=== PATIENT | male | born 1960 | race Caucasian/White ===

== ENCOUNTER 2018-09-21 16:50 | Emergency (ER) | payer MEDICARE, OTHER ==
[~2018-09-21] VITALS: Ht 170.2 cm; Wt 79.4 kg
[~2018-09-21 16:50] MED LIST: ACET500T68 PO; ALBU2.5V14 NEB; AMLO10TA8 PO; APIX5TAB PO; ASPI-482 PO; ATROVENT HFA12.9 GM IH; BACL10TA PO; BACL20TA PO; BREO ELLIPTA 11 EACH IH; BUDE0.5A3 NEB; CETI10TA16 PO; CHOL500016 PO; CLON1TAB11 PO; CLON2TAB9 PO; DEXT15DR5 EACHEYE; DICL100G18 TP; DIVA-53 PO; DIVA500T17 PO; DOCU-109 PO; DOXY100T PO; FURO-69 PO; GABA300C18 PO; GUAI237L83 PO; GUAI600T47 PO; HYDR-2761 PO; HYDR-2869 PO; IPRA3AMP29 NEB; LACT1CAP48 PO; LIDO700A39 TP; LORA10TA3 PO; MONT10TA9 PO; NICO1PAT21 TP; NICO2GUM42 BC; ONDA4TAB10 SL; PANT20TA2 PO; PHEN30SP8 MM; POTA20TA82 PO; PRED1TAB3 PO; PRED20TA PO; TRIH5TAB2 PO; VENL75CA6 PO
[2018-09-21 17:15] LABS: BASO # 0.1 x10^3/uL (0.0-0.2); BASO % 1 % (0-3); EOS # 0.2 x10^3/uL (0.0-0.7); EOS % 3 % (0-3); HEMOGLOBIN 12.7 g/dL (13.0-17.5); LYMPH # 1.4 x10^3/uL (1.0-4.8); LYMPH % 15 % (24-48); MEAN CORPUSCULAR HEMOGLOBIN 30 pg (25-35); MEAN CORPUSCULAR HGB CONC 33 g/dL (31-37); MEAN CORPUSCULAR VOLUME 93 fL (79-100); MONO % 12 % (0-9); NEUT # 6.2 x10^3uL (1.8-7.7); NEUT % 69 % (31-73); PLATELET COUNT 262 x10^3/uL (140-400); RED BLOOD COUNT 4.21 x10^6/uL (4.30-5.70); RED CELL DISTRIBUTION WIDTH 14.5 % (11.5-14.5); WHITE BLOOD COUNT 8.9 x10^3/uL (4.0-11.0)
[2018-09-21] MEDS ORDERED: IV NORMAL SALINE 1000ML BAG 1,000 ML IV ONE (17:15)
[2018-09-21 17:28] LABS: CALCIUM 9.6 mg/dL (8.5-10.1); CREATININE 0.7 mg/dL (0.7-1.3); GFR 115.4; POTASSIUM 4.6 mmol/L (3.5-5.1)
[2018-09-21 17:33] LABS: ALBUMIN 3.7 g/dL (3.4-5.0); ALBUMIN/GLOBULIN RATIO 1.1 (1.0-1.7); TOTAL BILIRUBIN 0.3 mg/dL (0.2-1.0); TOTAL PROTEIN 7.2 g/dL (6.4-8.2)
[2018-09-21 17:36] LABS: BILIRUBIN,URINE NEGATIVE (NEG); CLARITY,URINE CLEAR; COLOR,URINE YELLOW; NITRITE,URINE NEGATIVE (NEG); PROTEIN,URINE NEGATIVE (NEG-TRACE); UROBILINOGEN,URINE 0.2 mg/dL (0.2 mg/dL)
[2018-09-21 17:48] LABS: WBC,URINE OCC /HPF (0-4)
[2018-09-21 17:49] LABS: BACTERIA,URINE 0 /HPF (0-FEW); SQUAMOUS EPITHELIAL CELL,UR OCC /LPF
[2018-09-21] MEDS ORDERED: CONTRAST GIVEN. MC PRN (18:00)
[2018-09-21] MEDS ORDERED: IOHEXOL 240 MG/ML 50ML VIAL. PO ONE (18:00)
[2018-09-21] MEDS ORDERED: IOHEXOL 300 MG/ML 100ML VIAL. IV ONE (18:00)
--- NOTE | 2018-09-21 18:27 | RAD ---
PQRS Compliance Statement: One or more of the following individualized dose reduction techniques were utilized for this examination: 1. Automated exposure control 2. Adjustment of the mA and/or kV according to patient size 3. Use of iterative reconstruction technique CT abdomen/pelvis with contrast 09/21/2018 6:03 PM INDICATION: Right lower quadrant and right flank pain for 2 months. COMPARISON: None available TECHNIQUE: Multiple axial CT images of the abdomen and pelvis were obtained after the intravenous administration of 75 mL Omnipaque 300. Coronal and sagittal reformats are provided. FINDINGS: Bandlike density at the right lung base may represent subsegmental atelectasis or scarring. Bronchial wall thickening is compatible with bronchitis. Heart size is within normal limits. The liver, spleen, bilateral adrenal glands, pancreas and gallbladder are normal in appearance. 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 Moderate calcified atheromatous plaque is identified involving the abdominal aorta. There are no pathologically enlarged lymph nodes in abdomen and pelvis. There is no free fluid or free intraperitoneal air. There is a 16 mm simple cyst in the superior pole of the left kidney. There is a 3 mm nonobstructing calculus in inferior pole the left kidney. Subcentimeter hypodensities are identified bilaterally which statistically favor cysts. There is a 2 mm nonobstructing calculus in the midpole the right kidney. There is no hydronephrosis. There is symmetric renal enhancement. Oral contrast was administered. Opacified bowel loops demonstrate normal mucosal fold pattern. Small and large bowel are normal in caliber. There is no evidence for bowel obstruction. There are no pericolonic inflammatory changes. A normal, nondilated appendix is visualized without adjacent inflammatory changes. Prostate and seminal vesicles are normal in appearance. Urinary bladder is within normal limits given degree of distention. There is mild superior endplate compression deformity of L4 which appears chronic. Vacuum disc phenomena is identified at L3-L4. IMPRESSION: 1. No acute abnormality is identified in abdomen or pelvis. Specifically, appendix is normal in appearance. No evidence for obstructive uropathy. 2. Nonobstructing bilateral renal calculi are visualized measuring up to 3 mm. No hydronephrosis. 4. Minimal superior endplate concavity of the L4 vertebral body appears chronic. Electronically signed by: Maritza Hernandez MD (09/21/2018 6:24 PM) [facility]
[2018-09-21 18:30] VITALS: BP 192/89
--- NOTE | 2018-09-21 18:46 | PHYS DOC ---
Past Medical History Past Medical History: Anxiety, Bipolar, CHF, COPD, DVT, Hypertension, Other Additional Past Medical Histor: sleep apnea; mood disorder; chronic pain (NANY VERNON APRN) Past Surgical History: No Surgical History (NANY VERNON APRN) Alcohol Use: None Drug Use: None (NANY VERNON APRN) Adult General Chief Complaint Chief Complaint: ABDOMINAL PAIN HPI HPI Patient is a 57 year old male who presents with complaints of lower abdominal pain. The patient is pointing to his right lower quadrant. The patient states that he does still have his appendix. The patient was also talking about his story about when he was younger and complaining of sciatic pain following an injury. I clarified and the patient states that this happened years ago. He states that it does not have anything to do with his current complaint. Patient states nothing is helping with the pain. (NANY VERNON APRN) Review of Systems Review of Systems Constitutional: Denies fever or chills [] Eyes: Denies change in visual acuity, redness, or eye pain [] HENT: Denies nasal congestion or sore throat [] Respiratory: Denies cough or shortness of breath [] Cardiovascular: No additional information not addressed in HPI [] GI: See history of present illness : Denies dysuria or hematuria [] Musculoskeletal: Denies back pain or joint pain [] Integument: Denies rash or skin lesions [] Neurologic: Denies headache, focal weakness or sensory changes [] Endocrine: Denies polyuria or polydipsia [] All other systems were reviewed and found to be within normal limits, except as documented in this note. (NANY VERNON APRN) Current Medications Current Medications Current Medications Medications (Trade) Dose Ordered Sig/Ruth Start Time Stop Time Status Last Admin Dose Admin Acetaminophen/ Hydrocodone Bitart (Lortab 5/325) 1 tab STK-MED ONCE 09/21/18 19:10 09/21/18 19:11 DC Info (CONTRAST GIVEN -- Rx MONITORING) 1 each PRN DAILY PRN 09/21/18 18:00 09/21/18 19:05 DC Iohexol (Omnipaque 240 Mg/ml) 50 ml 1X ONCE 09/21/18 18:00 09/21/18 18:01 DC 09/21/18 18:07 50 ML Iohexol (Omnipaque 300 Mg/ml) 75 ml 1X ONCE 09/21/18 18:00 09/21/18 18:01 DC 09/21/18 18:07 75 ML Sodium Chloride 1,000 ml @ 1,000 mls/hr 1X ONCE 09/21/18 17:15 09/21/18 18:14 DC 09/21/18 17:18 1,000 MLS/HR (VIOLETTA MORSE MD) Allergies Allergies Allergies Coded Allergies Type Severity Reaction Last Updated Verified I S O L A T I O N *CONTACT* Allergy Unknown 01/28/18 Yes No Known Medication Allergies Allergy Unknown 01/28/18 Yes (VIOLETTA MORSE MD) Physical Exam Physical Exam Constitutional: Well developed, well nourished, no acute distress, non-toxic appearance. [] Cardiovascular:Heart rate regular rhythm, no murmur [] Lungs & Thorax: Bilateral breath sounds clear to auscultation [] Abdomen: Bowel sounds normal, soft, right lower quadrant tenderness, no masses, no pulsatile masses. [] Skin: Warm, dry, no erythema, no rash. [] Back: No tenderness, no CVA tenderness. [] Extremities: No tenderness, no cyanosis, no clubbing, ROM intact, no edema. [] Neurologic: Alert and oriented X 3, normal motor function, normal sensory function, no focal deficits noted. [] Psychologic: Affect normal, judgement normal, mood normal. [] (NANY VERNON APRN) Current Patient Data Vital Signs Vital Signs Date Time Temp Pulse Resp B/P (MAP) Pulse Ox O2 Delivery O2 Flow Rate FiO2 09/21/18 18:30 84 17 192/89 (123) 99 Nasal Cannula 2.0 09/21/18 17:13 97.9 97.9 (VIOLETTA MORSE MD) Lab Values Laboratory Tests Test 09/21/18 17:00 09/21/18 17:23 White Blood Count 8.9 x10^3/uL (4.0-11.0) Red Blood Count 4.21 x10^6/uL (4.30-5.70) L Hemoglobin 12.7 g/dL (13.0-17.5) L Hematocrit 39.0 % (39.0-53.0) Mean Corpuscular Volume 93 fL (79-100) Mean Corpuscular Hemoglobin 30 pg (25-35) Mean Corpuscular Hemoglobin Concent 33 g/dL (31-37) Red Cell Distribution Width 14.5 % (11.5-14.5) Platelet Count 262 x10^3/uL (140-400) Neutrophils (%) (Auto) 69 % (31-73) Lymphocytes (%) (Auto) 15 % (24-48) L Monocytes (%) (Auto) 12 % (0-9) H Eosinophils (%) (Auto) 3 % (0-3) Basophils (%) (Auto) 1 % (0-3) Neutrophils # (Auto) 6.2 x10^3uL (1.8-7.7) Lymphocytes # (Auto) 1.4 x10^3/uL (1.0-4.8) Monocytes # (Auto) 1.0 x10^3/uL (0.0-1.1) Eosinophils # (Auto) 0.2 x10^3/uL (0.0-0.7) Basophils # (Auto) 0.1 x10^3/uL (0.0-0.2) Sodium Level 141 mmol/L (136-145) Potassium Level 4.6 mmol/L (3.5-5.1) Chloride Level 101 mmol/L (98-107) Carbon Dioxide Level 35 mmol/L (21-32) H Anion Gap 5 (6-14) L Blood Urea Nitrogen 14 mg/dL (8-26) Creatinine 0.7 mg/dL (0.7-1.3) Estimated GFR (Cockcroft-Gault) 115.4 BUN/Creatinine Ratio 20 (6-20) Glucose Level 104 mg/dL (70-99) H Calcium Level 9.6 mg/dL (8.5-10.1) Total Bilirubin 0.3 mg/dL (0.2-1.0) Aspartate Amino Transferase (AST) 24 U/L (15-37) Alanine Aminotransferase (ALT) 17 U/L (16-63) Alkaline Phosphatase 102 U/L (46-116) Total Protein 7.2 g/dL (6.4-8.2) Albumin 3.7 g/dL (3.4-5.0) Albumin/Globulin Ratio 1.1 (1.0-1.7) Urine Color Yellow Urine Clarity Clear Urine pH 6.0 Urine Specific [place] <=1.005 Urine Protein Negative mg/dL (NEG-TRACE) Urine Glucose (UA) Negative mg/dL (NEG) Urine Ketones (Stick) Negative mg/dL (NEG) Urine Blood Negative (NEG) Urine Nitrite Negative (NEG) Urine Bilirubin Negative (NEG) Urine Urobilinogen Dipstick 0.2 mg/dL (0.2 mg/dL) Urine Leukocyte Esterase Negative (NEG) Urine RBC 1-2 /HPF (0-2) Urine WBC Occ /HPF (0-4) Urine Squamous Epithelial Cells Occ /LPF Urine Bacteria 0 /HPF (0-FEW) Laboratory Tests 09/21/18 17:00 Laboratory Tests 09/21/18 17:00 (VIOLETTA MORSE MD) EKG EKG [] (NANY VERNON APRN) Radiology/Procedures Radiology/Procedures []PATIENT: JUVENTINO CA AACCOUNT: [id number]#: [id number] : 1960 LOCATION: ER AGE: 57 SEX: M EXAM STATUS: REG ER ORD. PHYSICIAN: NANY VERNON APRN REASON: rlq pain, r flank pain PROCEDURE: CT ABD PELV W/ORAL&IV CONTRAST PQRS Compliance Statement: One or more of the following individualized dose reduction techniques were utilized for this examination: 1. Automated exposure control 2. Adjustment of the mA and/or kV according to patient size 3. Use of iterative reconstruction technique CT abdomen/pelvis with contrast 09/21/2018 6:03 PM INDICATION: Right lower quadrant and right flank pain for 2 months. COMPARISON: None available TECHNIQUE: Multiple axial CT images of the abdomen and pelvis were obtained after the intravenous administration of 75 mL Omnipaque 300. Coronal and sagittal reformats are provided. FINDINGS: Bandlike density at the right lung base may represent subsegmental atelectasis or scarring. Bronchial wall thickening is compatible with bronchitis. Heart size is within normal limits. The liver, spleen, bilateral adrenal glands, pancreas and gallbladder are normal in appearance. 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 Moderate calcified atheromatous plaque is identified involving the abdominal aorta. There are no pathologically enlarged lymph nodes in abdomen and pelvis. There is no free fluid or free intraperitoneal air. There is a 16 mm simple cyst in the superior pole of the left kidney. There is a 3 mm nonobstructing calculus in inferior pole the left kidney. Subcentimeter hypodensities are identified bilaterally which statistically favor cysts. There is a 2 mm nonobstructing calculus in the midpole the right kidney. There is no hydronephrosis. There is symmetric renal enhancement. Oral contrast was administered. Opacified bowel loops demonstrate normal mucosal fold pattern. Small and large bowel are normal in caliber. There is no evidence for bowel obstruction. There are no pericolonic inflammatory changes. A normal, nondilated appendix is visualized without adjacent inflammatory changes. Prostate and seminal vesicles are normal in appearance. Urinary bladder is within normal limits given degree of distention. There is mild superior endplate compression deformity of L4 which appears chronic. Vacuum disc phenomena is identified at L3-L4. IMPRESSION: 1. No acute abnormality is identified in abdomen or pelvis. Specifically, appendix is normal in appearance. No evidence for obstructive uropathy. 2. Nonobstructing bilateral renal calculi are visualized measuring up to 3 mm. No hydronephrosis. 4. Minimal superior endplate concavity of the L4 vertebral body appears chronic. Electronically signed by: Violet García MD (09/21/2018 6:24 PM) [facility] DICTATED and SIGNED BY: VIOLET GARCÍA MD DATE: 09/21/181814 (NANY VERNON APRN) Course & Med Decision Making Course & Med Decision Making Pertinent Labs and Imaging studies reviewed. (See chart for details) Labs and imaging were negative for an acute abdominal cause for the patient's pain. The patient was given a dose of Ola for pain in the emergency department. The patient was extremely angry with the nurse and was upset that he was not getting IV narcotic pain medication. We explained that his test results were negative. He continued to be very vocal about the need for IV pain medication. The patient was transported back to his place of residence by EMS. (NANY VERNON APRN) Course & Med Decision Making Staff Physician Addendum: I was working in the ER during the course of this patient's visit. I was available for consultation as needed, but I was not directly involved in the care of this patient. (VIOLETTA MORSE MD) Dragon Disclaimer Dragon Disclaimer This electronic medical record was generated, in whole or in part, using a voice recognition dictation system. (NANY VERNON APRN) Departure Departure Impression: Primary Impression: Abdominal pain Disposition: 01 HOME, SELF-CARE Condition: STABLE Referrals: HEATH MALLOY (PCP) Patient Instructions: Abdominal Pain (Nonspecific) Additional Instructions: There is no acute cause found for your abdominal pain. Follow-up with your primary care provider in 2-3 days if not improving or return to the emergency department if worsening. NANY VERNON APRN Sep 21, 2018 18:45 VIOLETTA MORSE MD Sep 24, 2018 07:05
[2018-09-21] MEDS ORDERED: HYDROcodone/APAP 5/325MG 1 TAB TABLET ONE (19:10)
[2018-09-21] MEDS ORDERED: HYDROcodone/APAP 5/325MG 1 TAB TABLET PO ONE (19:15)
== END 2018-09-21 19:05 | disposition home or self-care (01) ==
LOC: ER 16:50
DX: R10.31 Right lower quadrant pain (principal); N20.0 Calculus of kidney; G89.29 Other chronic pain; F41.9 Anxiety disorder, unspecified; F31.9 Bipolar disorder, unspecified; I11.0 Hypertensive heart disease with heart failure; I50.9 Heart failure, unspecified; J44.9 Chronic obstructive pulmonary disease, unspecified; Z86.718 Personal history of other venous thrombosis and embolism; Z91.041 Radiographic dye allergy status
CPT/HCPCS: 36415; 74177; 80053; 81001; 85025; 99284; J7030; Q9966; Q9967

== ENCOUNTER 2019-07-26 17:14 | Inpatient (IN) | payer MEDICARE, MEDICAID ==
[~2019-07-26] VITALS: Ht 170.2 cm; Wt 91.3 kg
[~2019-07-26 17:14] MED LIST changes: -CLON1TAB11 PO; +CLONAZEPAM1 MG PO; +LIDO700A21 TP; -LIDO700A39 TP; +MONT10TA49 PO; -MONT10TA9 PO; +POTA20TA4 PO; -POTA20TA82 PO
[2019-07-26] MEDS ORDERED: MORPHINE SULFATE 4 MG/ML VIAL. IV/SQ PRN (17:45)
[2019-07-26 17:53] LABS: BASO # 0.1 x10^3/uL (0.0-0.2); BASO % 1 % (0-3); EOS # 0.2 x10^3/uL (0.0-0.7); EOS % 3 % (0-3); HEMATOCRIT 40.1 % (39.0-53.0); HEMOGLOBIN 13.4 g/dL (13.0-17.5); LYMPH # 1.5 x10^3/uL (1.0-4.8); LYMPH % 20 % (24-48); MEAN CORPUSCULAR HEMOGLOBIN 31 pg (25-35); MEAN CORPUSCULAR HGB CONC 33 g/dL (31-37); MEAN CORPUSCULAR VOLUME 92 fL (79-100); MONO # 0.9 x10^3/uL (0.0-1.1); MONO % 12 % (0-9); NEUT # 4.8 x10^3/uL (1.8-7.7); NEUT % 64 % (31-73); PLATELET COUNT 248 x10^3/uL (140-400); RED BLOOD COUNT 4.35 x10^6/uL (4.30-5.70); RED CELL DISTRIBUTION WIDTH 13.6 % (11.5-14.5); WHITE BLOOD COUNT 7.4 x10^3/uL (4.0-11.0)
[2019-07-26 17:56] LABS: PROTHROMBIN TIME PATIENT 12.9 SEC (11.7-14.0)
[2019-07-26 18:05] LABS: CALCIUM 9.9 mg/dL (8.5-10.1); GFR 76.2; POTASSIUM 3.8 mmol/L (3.5-5.1)
[2019-07-26 18:11] LABS: ALBUMIN/GLOBULIN RATIO 1.2 (1.0-1.7); MAGNESIUM 2.2 mg/dL (1.8-2.4); TOTAL BILIRUBIN 0.3 mg/dL (0.2-1.0); TOTAL PROTEIN 7.4 g/dL (6.4-8.2)
--- NOTE | 2019-07-26 18:16 | RAD ---
Examination: PORTABLE CHEST 1V History: Edema Comparison/Correlation: 02/15/2018 portable chest x-ray exam, 08/09/2018 CTA of the chest Findings: Portable upright frontal view chest was obtained. Heart size is normal. Left basilar opacity is evident in the retrocardiac region pulmonary hyperinflation is present. Right lateral mid thoracic opacity is present And somewhat more evident as compared to the previous CT exam. Right costophrenic angle blunting is similar to previous exam. Pulmonary hyperinflation noted. Impression: Opacity the right lateral mid thoracic level is somewhat more dense than previously although this may be due to differences in technique. Consider interval follow-up CT of the chest with contrast assess in order to stability. Electronically signed by: Say Cortez MD (07/26/2019 6:13 PM) [facility]
[2019-07-26 18:52] LABS: BILIRUBIN,URINE NEGATIVE (NEG); CLARITY,URINE CLEAR; COLOR,URINE YELLOW; NITRITE,URINE NEGATIVE (NEG); PH,URINE 6.5; PROTEIN,URINE NEGATIVE (NEG-TRACE); UROBILINOGEN,URINE 0.2 mg/dL (0.2 mg/dL)
[2019-07-26 19:06] LABS: BACTERIA,URINE 0 /HPF (0-FEW); RBC,URINE 0 /HPF (0-2); WBC,URINE 0 /HPF (0-4)
[2019-07-26] MEDS ORDERED: IOHEXOL 300 MG/ML 100ML VIAL. IV ONE (19:15)
[2019-07-26] MEDS ORDERED: CONTRAST GIVEN. MC PRN (19:30)
--- NOTE | 2019-07-26 20:00 | PHYS DOC ---
Past Medical History Past Medical History: Anxiety, Bipolar, CHF, COPD, DVT, Hypertension, Other Additional Past Medical Histor: sleep apnea; mood disorder; chronic pain, cervical dystonia (VAHID BENNETT APRN) Past Surgical History: No Surgical History (VAHID BENNETT APRN) Alcohol Use: None Drug Use: None (VAHID BENNETT APRN) Attending Signature I have participated in the care of this patient and I have reviewed and agree with all pertinent clinical information above including history, exam, and recommendations. (CHAR CHAVARRIA MD) Adult General Chief Complaint Chief Complaint: LOWER EXTREMITY EDEMA HPI HPI Patient is a 58 year old male with history of COPD and oxygen 2 L, hypertension, CHF, bipolar, cervical dystonia, DVT, unknown what blood thinner he takes, who presents to the ED today complaining of increased swelling to the abdomen and lower extremity that has been going on for 1 month. Patient states he came from a residential and had gone home to visit the mother and the sister who felt he was more swollen than normal. Patient denies any new shortness of breath. Patient states his medicines at the residential have been switched around so many times that he currently cannot remember what he is on. Patient is a very poor historian preferring most questions back to the residential (VAHID BENNETT APRN) Review of Systems Review of Systems Constitutional: Denies fever or chills [] Eyes: Denies change in visual acuity, redness, or eye pain [] HENT: Denies nasal congestion or sore throat [] Respiratory: Denies cough or shortness of breath [] Cardiovascular: No additional information not addressed in HPI [] GI: Denies abdominal pain, nausea, vomiting, bloody stools or diarrhea [] : Denies dysuria or hematuria [] Musculoskeletal:Reports BLE swelling. Denies back pain or joint pain [] Integument: Denies rash or skin lesions [] Neurologic: Denies headache, focal weakness or sensory changes [] All other systems were reviewed and found to be within normal limits, except as documented in this note. (VAHID BENNETT APRN) Current Medications Current Medications Current Medications Medications (Trade) Dose Ordered Sig/Ruth Start Time Stop Time Status Last Admin Dose Admin Iohexol (Omnipaque 300 Mg/ml) 75 ml 1X ONCE 07/26/19 19:15 07/26/19 19:17 DC 12/24/19 19:15 75 ML Morphine Sulfate (Morphine Sulfate) 4 mg PRN Q15MIN PRN 07/26/19 17:45 07/27/19 17:44 07/26/19 20:08 4 MG (CHAR CHAVARRIA MD) Allergies Allergies Allergies Coded Allergies Type Severity Reaction Last Updated Verified I S O L A T I O N *CONTACT* Allergy Unknown 01/28/18 Yes No Known Medication Allergies Allergy Unknown 01/28/18 Yes (CHAR CHAVARRIA MD) Physical Exam Physical Exam Constitutional: Well developed, well nourished, no acute distress, non-toxic appearance. [] HENT: Normocephalic, atraumatic, bilateral external ears normal, oropharynx moist, no oral exudates, nose normal. [] Eyes: PERRLA, EOMI, conjunctiva normal, no discharge. [] Neck: Normal range of motion, no tenderness, supple, no stridor. [] Cardiovascular:Heart rate regular rhythm, no murmur [] Lungs & Thorax: Bilateral breath sounds clear to auscultation [] Abdomen: Rounded abdomen. Bowel sounds normal, soft, no tenderness, no masses, no pulsatile masses. [] Skin: Warm, dry, no erythema, no rash. [] Back: No tenderness, no CVA tenderness. [] Extremities: No tenderness, no cyanosis, no clubbing, ROM intact, +3 edema noted to bilateral lower extremities. Negative Homans sign bilaterally. Neurologic: Alert and oriented X 3, normal motor function, normal sensory function, no focal deficits noted. [] Psychologic: Affect normal, judgement normal, mood normal. [] (VAHID BENNETT APRN) Current Patient Data Vital Signs Vital Signs Date Time Temp Pulse Resp B/P (MAP) Pulse Ox O2 Delivery O2 Flow Rate FiO2 07/26/19 18:56 86 167/93 (117) 96 Nasal Cannula 2.0 07/26/19 17:20 98.5 22 98.5 (CHAR CHAVARRIA MD) Lab Values Laboratory Tests Test 07/26/19 17:35 07/26/19 18:45 White Blood Count 7.4 x10^3/uL (4.0-11.0) Red Blood Count 4.35 x10^6/uL (4.30-5.70) Hemoglobin 13.4 g/dL (13.0-17.5) Hematocrit 40.1 % (39.0-53.0) Mean Corpuscular Volume 92 fL (79-100) Mean Corpuscular Hemoglobin 31 pg (25-35) Mean Corpuscular Hemoglobin Concent 33 g/dL (31-37) Red Cell Distribution Width 13.6 % (11.5-14.5) Platelet Count 248 x10^3/uL (140-400) Neutrophils (%) (Auto) 64 % (31-73) Lymphocytes (%) (Auto) 20 % (24-48) L Monocytes (%) (Auto) 12 % (0-9) H Eosinophils (%) (Auto) 3 % (0-3) Basophils (%) (Auto) 1 % (0-3) Neutrophils # (Auto) 4.8 x10^3/uL (1.8-7.7) Lymphocytes # (Auto) 1.5 x10^3/uL (1.0-4.8) Monocytes # (Auto) 0.9 x10^3/uL (0.0-1.1) Eosinophils # (Auto) 0.2 x10^3/uL (0.0-0.7) Basophils # (Auto) 0.1 x10^3/uL (0.0-0.2) Prothrombin Time 12.9 SEC (11.7-14.0) Prothrombin Time INR 1.0 (0.8-1.1) Sodium Level 144 mmol/L (136-145) Potassium Level 3.8 mmol/L (3.5-5.1) Chloride Level 102 mmol/L (98-107) Carbon Dioxide Level 37 mmol/L (21-32) H Anion Gap 5 (6-14) L Blood Urea Nitrogen 20 mg/dL (8-26) Creatinine 1.0 mg/dL (0.7-1.3) Estimated GFR (Cockcroft-Gault) 76.2 BUN/Creatinine Ratio 20 (6-20) Glucose Level 140 mg/dL (70-99) H Calcium Level 9.9 mg/dL (8.5-10.1) Magnesium Level 2.2 mg/dL (1.8-2.4) Total Bilirubin 0.3 mg/dL (0.2-1.0) Aspartate Amino Transferase (AST) 19 U/L (15-37) Alanine Aminotransferase (ALT) 23 U/L (16-63) Alkaline Phosphatase 98 U/L (46-116) Creatine Kinase 217 U/L (39-308) Creatine Kinase MB (Mass) 2.5 ng/mL (0.0-3.6) Creatine Kinase MB Relative Index 1.2 % (0-4) Troponin I Quantitative < 0.017 ng/mL (0.000-0.055) UY-Bnh-C-Type Natriuretic Peptide 107 pg/mL (0-124) Total Protein 7.4 g/dL (6.4-8.2) Albumin 4.0 g/dL (3.4-5.0) Albumin/Globulin Ratio 1.2 (1.0-1.7) Urine Collection Type Unknown Urine Color Yellow Urine Clarity Clear Urine pH 6.5 Urine Specific [place] 1.020 Urine Protein Negative mg/dL (NEG-TRACE) Urine Glucose (UA) Negative mg/dL (NEG) Urine Ketones (Stick) Negative mg/dL (NEG) Urine Blood Negative (NEG) Urine Nitrite Negative (NEG) Urine Bilirubin Negative (NEG) Urine Urobilinogen Dipstick 0.2 mg/dL (0.2 mg/dL) Urine Leukocyte Esterase Negative (NEG) Urine RBC 0 /HPF (0-2) Urine WBC 0 /HPF (0-4) Urine Squamous Epithelial Cells None /LPF Urine Bacteria 0 /HPF (0-FEW) Urine Mucus Slight /LPF Laboratory Tests 07/26/19 17:35 Laboratory Tests 07/26/19 17:35 (CHAR CHAVARRIA MD) EKG EKG [address] Rosa sinus rhythm Hr 87 no STEMI[] (VAHID BENNETT APRN) Radiology/Procedures Radiology/Procedures PROCEDURE: PORTABLE CHEST 1V Examination: PORTABLE CHEST 1V History: Edema Comparison/Correlation: 02/15/2018 portable chest x-ray exam, 08/09/2018 CTA of the chest Findings: Portable upright frontal view chest was obtained. Heart size is normal. Left basilar opacity is evident in the retrocardiac region pulmonary hyperinflation is present. Right lateral mid thoracic opacity is present And somewhat more evident as compared to the previous CT exam. Right costophrenic angle blunting is similar to previous exam. Pulmonary hyperinflation noted. Impression: Opacity the right lateral mid thoracic level is somewhat more dense than previously although this may be due to differences in technique. Consider interval follow-up CT of the chest with contrast assess in order to stability. Electronically signed by: Say Ontiveros MD (07/26/2019 6:13 PM) [facility] DICTATED and SIGNED BY: SAY ONTIVEROS MD DATE: 07/26/191812 []PROCEDURE: VENOUS LOWER EXT BILATERAL Examination: VENOUS LOWER EXT BILATERAL History: Bilateral lower extremity swelling Comparison/Correlation: None FINDINGS: Bilateral lower extremity duplex venous ultrasound exam was performed. Grayscale, color Doppler, and spectral Doppler imaging was performed. Compression and augmentation was performed. The right common femoral vein, superficial femoral vein, popliteal vein, and greater saphenous vein are normal with no evidence of deep venous thrombus. Normal compressibility and augmentation is evident. The left common femoral vein, superficial femoral vein, popliteal vein, and greater saphenous vein are normal with no evidence of deep venous thrombus. Normal compressibility and augmentation is evident. Visualized calf veins bilaterally are unremarkable. IMPRESSION: Normal bilateral lower extremity duplex ultrasound exam. No evidence of deep venous thrombus involving the lower extremities. Electronically signed by: Say Ontiveros MD (07/26/2019 8:35 PM) [facility] DICTATED and SIGNED BY: SAY ONTIVEROS MD DATE: 07/26/192034 PROCEDURE: CT CHEST W/CONTRAST Examination: CT CHEST W/CONTRAST History: Abnormal chest x-ray. Lung opacities. Comparison/Correlation: 07/26/2019 portable chest x-ray exam performed earlier, 08/09/2018 CTA of the chest Findings: Axial images of chest were obtained following IV contrast. Sagittal and coronal reformatted images were provided. Thyroid gland is unremarkable. Coronary arterial calcification noted. No enlarged thoracic lymph nodes. No pleural or pericardial effusion. Bronchial wall thickening involving the lower lobes again seen. Mild bilateral lower lobe bronchial wall thickening is evident. Right posterior basilar pleural thickening and lung field scarring is again identified. No new mass in the interval. Marked centrilobular emphysematous involvement along aguilar noted. Large bulla involves the right apex. Bullae the anterior lung bases noted. Left renal superior pole low-attenuation cyst is stable. Stomach is distended with debris. Bony structures are unremarkable. Impression: Right posterior pleural thickening and basilar scarring are unchanged. No new mass is evident. No suspicious infiltrate or effusion. Significant emphysematous involvement along aguilar again noted. Bronchial wall thickening compatible with bronchitis. PQRS Compliance Statement: One or more of the following individualized dose reduction techniques were utilized for this examination: 1. Automated exposure control 2. Adjustment of the mA and/or kV according to patient size 3. Use of iterative reconstruction technique Electronically signed by: Say Ontiveros MD (07/26/2019 8:28 PM) [facility] DICTATED and SIGNED BY: SAY ONTIVEROS MD DATE: 07/26/192027 (VAHID BENNETT APRN) Course & Med Decision Making Course & Med Decision Making Pertinent Labs and Imaging studies reviewed. (See chart for details) This is a 58-year-old male patient presenting to the ED today complaining of increased swelling to the abdomen and bilateral lower extremities that has been going on for 1 month. See history of present illness. Has history of CHF, DVT. Patient does not know what medications is on. BNP 107, venous Dopplers of the bilateral lower extremities are negative. CT of the chest is negative for any acute findings, noted for bronchitis. Spoke with Dr. Watkins who accepted patient for admission. (VAHID BENNETT APRN) Dragon Disclaimer Dragon Disclaimer This electronic medical record was generated, in whole or in part, using a voice recognition dictation system. (VAHID BENNETT APRN) Departure Departure Impression: Primary Impression: Swelling of both lower extremities Additional Impression: Acute bronchitis Disposition: ADMITTED INPATIENT Condition: STABLE Referrals: HEATH MALLOY (PCP) Problem Qualifiers Additional Impression: Acute bronchitis Bronchitis organism: unspecified organism Qualified Codes: J20.9 - Acute bronchitis, unspecified VAHID BENNETT APRN Jul 26, 2019 20:00 CHAR CHAVARRIA MD Jul 26, 2019 21:33
--- NOTE | 2019-07-26 20:31 | RAD ---
Examination: CT CHEST W/CONTRAST History: Abnormal chest x-ray. Lung opacities. Comparison/Correlation: 07/26/2019 portable chest x-ray exam performed earlier, 08/09/2018 CTA of the chest Findings: Axial images of chest were obtained following IV contrast. Sagittal and coronal reformatted images were provided. Thyroid gland is unremarkable. Coronary arterial calcification noted. No enlarged thoracic lymph nodes. No pleural or pericardial effusion. Bronchial wall thickening involving the lower lobes again seen. Mild bilateral lower lobe bronchial wall thickening is evident. Right posterior basilar pleural thickening and lung field scarring is again identified. No new mass in the interval. Marked centrilobular emphysematous involvement along aguilar noted. Large bulla involves the right apex. Bullae the anterior lung bases noted. Left renal superior pole low-attenuation cyst is stable. Stomach is distended with debris. Bony structures are unremarkable. Impression: Right posterior pleural thickening and basilar scarring are unchanged. No new mass is evident. No suspicious infiltrate or effusion. Significant emphysematous involvement along aguilar again noted. Bronchial wall thickening compatible with bronchitis. PQRS Compliance Statement: One or more of the following individualized dose reduction techniques were utilized for this examination: 1. Automated exposure control 2. Adjustment of the mA and/or kV according to patient size 3. Use of iterative reconstruction technique Electronically signed by: Say Cortez MD (07/26/2019 8:28 PM) [facility]
--- NOTE | 2019-07-26 20:38 | RAD ---
Examination: VENOUS LOWER EXT BILATERAL History: Bilateral lower extremity swelling Comparison/Correlation: None FINDINGS: Bilateral lower extremity duplex venous ultrasound exam was performed. Grayscale, color Doppler, and spectral Doppler imaging was performed. Compression and augmentation was performed. The right common femoral vein, superficial femoral vein, popliteal vein, and greater saphenous vein are normal with no evidence of deep venous thrombus. Normal compressibility and augmentation is evident. The left common femoral vein, superficial femoral vein, popliteal vein, and greater saphenous vein are normal with no evidence of deep venous thrombus. Normal compressibility and augmentation is evident. Visualized calf veins bilaterally are unremarkable. IMPRESSION: Normal bilateral lower extremity duplex ultrasound exam. No evidence of deep venous thrombus involving the lower extremities. Electronically signed by: Say Cortez MD (07/26/2019 8:35 PM) [facility]
[2019-07-26 20:45] VITALS: BP 154/83
[2019-07-26 23:00] VITALS: BP 149/80
[2019-07-27] VITALS (7 sets, daily range): BP systolic 137–152; BP diastolic 72–81
[2019-07-27] MEDS: MORPHINE IR 15 MG TABLET PO PRN ×3 (06:48→18:00)
--- NOTE | 2019-07-27 07:29 | PDOC1 ---
History and Physical Date of Admission Date of Admission DATE: 07/27/19 TIME: 07:29 Identification/Chief Complaint Chief Complaint SEEN IN ER WITH INC EDEMA , 58 year old male with history of COPD and oxygen 2 L, hypertension, CHF, bipolar, cervical dystonia, DVT, unknown what blood thinner he takes, who presents to the ED complaining of increased swelling to the abdomen and lower extremity that has been going on for 1 month. Patient states he came from [facility] and had gone home to visit the mother and the sister who felt he was more swollen than normal. Patient denies any new shortness of breath i do not hear mush wheezing this AM, AND LEG EDEMA HAS IMPROVED WITH ELEVATION TO TRACE Past Medical History Past Medical History Past Medical History Past Medical History Past Medical History: Anxiety, Bipolar, CHF, COPD, DVT, Hypertension, Other Additional Past Medical Histor: sleep apnea; mood disorder; chronic pain, cervical dystonia Past Surgical History: No Surgical History Alcohol Use: None Drug Use: None fhx copd Cardiovascular: HTN Pulmonary: Bronchitis, COPD Past Surgical History Past Surgical History: No pertinent history Family History Family History: High Cholestrol, Hypertension Social History Smoke: Quit (QUIT 2 YRS AGO) ALCOHOL: occassional Drugs: None Current Problem List Problem List Problems Medical Problems: (1) Acute bronchitis Status: Acute Current Medications Current Medications Current Medications Morphine Sulfate (Morphine Sulfate) 4 mg PRN Q15MIN PRN IV/SQ PAIN GREATER THAN 3/10 Last administered on 07/26/19at 20:08; Start 07/26/19 at 17:45; Stop 07/27/19 at 17:44 Iohexol (Omnipaque 300 Mg/ml) 75 ml 1X ONCE IV Last administered on 07/26/19at 19:15; Start 07/26/19 at 19:15; Stop 07/26/19 at 19:17; Status DC Info (CONTRAST GIVEN -- Rx MONITORING) 1 each PRN DAILY PRN MC SEE COMMENTS; Start 07/26/19 at 19:30; Stop 07/28/19 at 19:29 Morphine Sulfate (Morphine Ir) 15 mg PRN Q4HRS PRN PO PAIN Last administered on 07/27/19at 06:48; Start 07/27/19 at 06:15 Active Scripts Active Prednisone 20 Mg Tablet 40 Mg PO DAILY 3 Days Doxycycline Hyclate 100 Mg Tablet 100 Mg PO BID 3 Days Reported Divalproex Sodium Er (Divalproex Sodium) 500 Mg Tab.er.24h 250 Mg PO DAILY Protonix (Pantoprazole Sodium) 20 Mg Tablet.dr 40 Mg PO DAILY Lidocaine PATCH (Lidocaine) 1 Each Adh..patch 1 Each TP DAILY Zofran Odt (Ondansetron) 4 Mg Tab.rapdis 1 Tab SL PRN Q6HRS PRN NICODERM CQ 21mg (Nicotine) 1 Each Patch.td24 1 Patch TP PRN DAILY Acetaminophen 500 Mg Tablet 1 Tab PO PRN Q6HRS PRN Montelukast Sodium Tablet (Montelukast Sodium) 10 Mg Tablet 10 Mg PO HS Robitussin Cough-Chest Dm Liq (Guaifenesin/Dextromethorphan) 237 Ml Liquid 237 Ml PO PRN QID PRN Acidophilus Lactobacilli (Lactobacillus Acidophilus) 1 Each Capsule 1 Each PO BID Duoneb 0.5-3(2.5) Mg/3 Ml (Albuterol/Ipratropium) 3 Ml Ampul.neb 3 Ml NEB QID Artificial Tears Eye Drops (Dextran 70/Hypromellose) 15 Ml Drops 1 Drop EACHEYE Q4HRS PRN Hydrocodone-Apap 5-325 (Hydrocodone Bit/Acetaminophen) 1 Each Tablet 1 Tab PO PRN Q4HRS PRN Albuterol Sulfate Conc Neb Soln (Albuterol Sulfate) 2.5 Mg/0.5 Ml Vial.neb 1 Vial NEB PRN Q4HRS Vitamin D3 (Cholecalciferol (Vitamin D3)) 5,000 Unit Tablet 1 Tab PO DAILY Trihexyphenidyl Hcl 5 Mg Tablet 1 Tab PO DAILY08 Potassium Chloride (Potassium Chloride) 20 Meq Tablet.er 20 Meq PO BID Hydralazine Hcl 50 Mg Tablet 1 Tab PO QID Gabapentin (Gabapentin) 300 Mg Capsule 300 Mg PO QID Eliquis (Apixaban) 5 Mg Tablet 5 Mg PO BID Amlodipine Besylate 10 Mg Tablet 10 Mg PO DAILY Venlafaxine Hcl Er (Venlafaxine Hcl) 75 Mg Cap.er.24h 1 Cap PO DAILY Clonazepam 2 Mg Tablet 1 Tab PO PRN HS Clonazepam 1 Mg Tablet 1 Mg PO PRN BID Allergies Allergies: Coded Allergies: I S O L A T I O N *CONTACT* (Verified Allergy, Unknown, 01/28/18) mrsa No Known Medication Allergies (Verified Allergy, Unknown, 01/28/18) ROS Review of System Review of Systems Review of Systems Constitutional: Denies fever or chills [] Eyes: Denies change in visual acuity, redness, or eye pain [] HENT: Denies nasal congestion or sore throat [] Respiratory: Denies cough or shortness of breath [] Cardiovascular: No additional information not addressed in HPI [] GI: Denies abdominal pain, nausea, vomiting, bloody stools or diarrhea [] : Denies dysuria or hematuria [] Musculoskeletal:Reports BLE swelling. Denies back pain or joint pain [] Integument: Denies rash or skin lesions [] Neurologic: Denies headache, focal weakness or sensory changes [] 14 PT systems were reviewed and found to be within normal limits, except as documented General: YES: Fatigue Respiratory: YES: SOB with excertion Cardiovascular: No Chest Pain, No Palpitations, No Orthopnea, No Paroxysmal Noc. Dyspnea, No Edema, No Lt Headedness, No Other Gastrointestinal: No Nausea, No Vomiting, No Abdominal Pain, No Diarrhea, No Constipation, No Melena, No Hematochezia, No Other Physical Exam Physical Exam Physical Exam Physical Exam Constitutional: Well developed, well nourished, no acute distress, non-toxic appearance. [] HENT: Normocephalic, atraumatic, bilateral external ears normal, oropharynx moist, no oral exudates, nose normal. [] Eyes: PERRLA, EOMI, conjunctiva normal, no discharge. [] Neck: Normal range of motion, no tenderness, supple, no stridor. [] Cardiovascular:Heart rate regular rhythm, no murmur [] Lungs & Thorax: Bilateral breath sounds clear to auscultation, DISTANT [] Abdomen: Rounded abdomen. Bowel sounds normal, soft, no tenderness, no masses, no pulsatile masses. [] Skin: Warm, dry, no erythema, no rash. [] Back: No tenderness, no CVA tenderness. [] Extremities: No tenderness, no cyanosis, no clubbing, ROM intact, +3 edema noted to bilateral lower extremities. Negative Homans sign bilaterally. Neurologic: Alert and oriented X 3, normal motor function, normal sensory function, no focal deficits noted. [] Psychologic: Affect normal, judgement normal, mood normal. [] General: Alert, Oriented X3, Cooperative, No acute distress HEENT: EOMI Heart: no thrills, no rubs Breasts: Not examined Abdomen: Normal bowel sounds, Soft Rectal Exam: not examined PELVIC: Examination not indicated Extremities: No cyanosis, No edema Neuro: Normal speech, Cranial nerves 3-12 NL Psych/Mental Status: Mental status NL, Mood NL Vitals Vitals Vital Signs Date Time Temp Pulse Resp B/P (MAP) Pulse Ox O2 Delivery O2 Flow Rate FiO2 07/27/19 06:48 Nasal Cannula 2.0 07/27/19 05:00 98.0 69 20 141/78 (99) 93 98.0 Labs Labs Laboratory Tests Test 07/26/19 17:35 07/26/19 18:45 White Blood Count 7.4 x10^3/uL (4.0-11.0) Red Blood Count 4.35 x10^6/uL (4.30-5.70) Hemoglobin 13.4 g/dL (13.0-17.5) Hematocrit 40.1 % (39.0-53.0) Mean Corpuscular Volume 92 fL (79-100) Mean Corpuscular Hemoglobin 31 pg (25-35) Mean Corpuscular Hemoglobin Concent 33 g/dL (31-37) Red Cell Distribution Width 13.6 % (11.5-14.5) Platelet Count 248 x10^3/uL (140-400) Neutrophils (%) (Auto) 64 % (31-73) Lymphocytes (%) (Auto) 20 % (24-48) Monocytes (%) (Auto) 12 % (0-9) Eosinophils (%) (Auto) 3 % (0-3) Basophils (%) (Auto) 1 % (0-3) Neutrophils # (Auto) 4.8 x10^3/uL (1.8-7.7) Lymphocytes # (Auto) 1.5 x10^3/uL (1.0-4.8) Monocytes # (Auto) 0.9 x10^3/uL (0.0-1.1) Eosinophils # (Auto) 0.2 x10^3/uL (0.0-0.7) Basophils # (Auto) 0.1 x10^3/uL (0.0-0.2) Prothrombin Time 12.9 SEC (11.7-14.0) Prothromb Time International Ratio 1.0 (0.8-1.1) Sodium Level 144 mmol/L (136-145) Potassium Level 3.8 mmol/L (3.5-5.1) Chloride Level 102 mmol/L (98-107) Carbon Dioxide Level 37 mmol/L (21-32) Anion Gap 5 (6-14) Blood Urea Nitrogen 20 mg/dL (8-26) Creatinine 1.0 mg/dL (0.7-1.3) Estimated GFR (Cockcroft-Gault) 76.2 BUN/Creatinine Ratio 20 (6-20) Glucose Level 140 mg/dL (70-99) Calcium Level 9.9 mg/dL (8.5-10.1) Magnesium Level 2.2 mg/dL (1.8-2.4) Total Bilirubin 0.3 mg/dL (0.2-1.0) Aspartate Amino Transf (AST/SGOT) 19 U/L (15-37) Alanine Aminotransferase (ALT/SGPT) 23 U/L (16-63) Alkaline Phosphatase 98 U/L (46-116) Creatine Kinase 217 U/L (39-308) Creatine Kinase MB (Mass) 2.5 ng/mL (0.0-3.6) Creatine Kinase MB Relative Index 1.2 % (0-4) Troponin I Quantitative < 0.017 ng/mL (0.000-0.055) ZW-Vuk-S-Type Natriuretic Peptide 107 pg/mL (0-124) Total Protein 7.4 g/dL (6.4-8.2) Albumin 4.0 g/dL (3.4-5.0) Albumin/Globulin Ratio 1.2 (1.0-1.7) Urine Collection Type Unknown Urine Color Yellow Urine Clarity Clear Urine pH 6.5 Urine Specific [place] 1.020 Urine Protein Negative mg/dL (NEG-TRACE) Urine Glucose (UA) Negative mg/dL (NEG) Urine Ketones (Stick) Negative mg/dL (NEG) Urine Blood Negative (NEG) Urine Nitrite Negative (NEG) Urine Bilirubin Negative (NEG) Urine Urobilinogen Dipstick 0.2 mg/dL (0.2 mg/dL) Urine Leukocyte Esterase Negative (NEG) Urine RBC 0 /HPF (0-2) Urine WBC 0 /HPF (0-4) Urine Squamous Epithelial Cells None /LPF Urine Bacteria 0 /HPF (0-FEW) Urine Mucus Slight /LPF Laboratory Tests Test 07/26/19 17:35 07/26/19 18:45 White Blood Count 7.4 x10^3/uL (4.0-11.0) Red Blood Count 4.35 x10^6/uL (4.30-5.70) Hemoglobin 13.4 g/dL (13.0-17.5) Hematocrit 40.1 % (39.0-53.0) Mean Corpuscular Volume 92 fL (79-100) Mean Corpuscular Hemoglobin 31 pg (25-35) Mean Corpuscular Hemoglobin Concent 33 g/dL (31-37) Red Cell Distribution Width 13.6 % (11.5-14.5) Platelet Count 248 x10^3/uL (140-400) Neutrophils (%) (Auto) 64 % (31-73) Lymphocytes (%) (Auto) 20 % (24-48) Monocytes (%) (Auto) 12 % (0-9) Eosinophils (%) (Auto) 3 % (0-3) Basophils (%) (Auto) 1 % (0-3) Neutrophils # (Auto) 4.8 x10^3/uL (1.8-7.7) Lymphocytes # (Auto) 1.5 x10^3/uL (1.0-4.8) Monocytes # (Auto) 0.9 x10^3/uL (0.0-1.1) Eosinophils # (Auto) 0.2 x10^3/uL (0.0-0.7) Basophils # (Auto) 0.1 x10^3/uL (0.0-0.2) Prothrombin Time 12.9 SEC (11.7-14.0) Prothromb Time International Ratio 1.0 (0.8-1.1) Sodium Level 144 mmol/L (136-145) Potassium Level 3.8 mmol/L (3.5-5.1) Chloride Level 102 mmol/L (98-107) Carbon Dioxide Level 37 mmol/L (21-32) Anion Gap 5 (6-14) Blood Urea Nitrogen 20 mg/dL (8-26) Creatinine 1.0 mg/dL (0.7-1.3) Estimated GFR (Cockcroft-Gault) 76.2 BUN/Creatinine Ratio 20 (6-20) Glucose Level 140 mg/dL (70-99) Calcium Level 9.9 mg/dL (8.5-10.1) Magnesium Level 2.2 mg/dL (1.8-2.4) Total Bilirubin 0.3 mg/dL (0.2-1.0) Aspartate Amino Transf (AST/SGOT) 19 U/L (15-37) Alanine Aminotransferase (ALT/SGPT) 23 U/L (16-63) Alkaline Phosphatase 98 U/L (46-116) Creatine Kinase 217 U/L (39-308) Creatine Kinase MB (Mass) 2.5 ng/mL (0.0-3.6) Creatine Kinase MB Relative Index 1.2 % (0-4) Troponin I Quantitative < 0.017 ng/mL (0.000-0.055) JM-Iuv-Q-Type Natriuretic Peptide 107 pg/mL (0-124) Total Protein 7.4 g/dL (6.4-8.2) Albumin 4.0 g/dL (3.4-5.0) Albumin/Globulin Ratio 1.2 (1.0-1.7) Urine Collection Type Unknown Urine Color Yellow Urine Clarity Clear Urine pH 6.5 Urine Specific [place] 1.020 Urine Protein Negative mg/dL (NEG-TRACE) Urine Glucose (UA) Negative mg/dL (NEG) Urine Ketones (Stick) Negative mg/dL (NEG) Urine Blood Negative (NEG) Urine Nitrite Negative (NEG) Urine Bilirubin Negative (NEG) Urine Urobilinogen Dipstick 0.2 mg/dL (0.2 mg/dL) Urine Leukocyte Esterase Negative (NEG) Urine RBC 0 /HPF (0-2) Urine WBC 0 /HPF (0-4) Urine Squamous Epithelial Cells None /LPF Urine Bacteria 0 /HPF (0-FEW) Urine Mucus Slight /LPF Images Images Examination: VENOUS LOWER EXT BILATERAL History: Bilateral lower extremity swelling Comparison/Correlation: None FINDINGS: Bilateral lower extremity duplex venous ultrasound exam was performed. Grayscale, color Doppler, and spectral Doppler imaging was performed. Compression and augmentation was performed. The right common femoral vein, superficial femoral vein, popliteal vein, and greater saphenous vein are normal with no evidence of deep venous thrombus. Normal compressibility and augmentation is evident. The left common femoral vein, superficial femoral vein, popliteal vein, and greater saphenous vein are normal with no evidence of deep venous thrombus. Normal compressibility and augmentation is evident. Visualized calf veins bilaterally are unremarkable. IMPRESSION: Normal bilateral lower extremity duplex ultrasound exam. No evidence of deep venous thrombus involving the lower extremities. Electronically signed by: Simin Ontiveros MD (07/26/2019 8:35 PM) [facility] DICTATED and SIGNED BY: SIMIN ONTIVEROS MD DATE: 07/26/192034 SEX: M EXAM STATUS: ADM IN ORD. PHYSICIAN: VAHID BENNETT APRN REASON: lung opacities PROCEDURE: CT CHEST W/CONTRAST Examination: CT CHEST W/CONTRAST History: Abnormal chest x-ray. Lung opacities. Comparison/Correlation: 07/26/2019 portable chest x-ray exam performed earlier, 08/09/2018 CTA of the chest Findings: Axial images of chest were obtained following IV contrast. Sagittal and coronal reformatted images were provided. Thyroid gland is unremarkable. Coronary arterial calcification noted. No enlarged thoracic lymph nodes. No pleural or pericardial effusion. Bronchial wall thickening involving the lower lobes again seen. Mild bilateral lower lobe bronchial wall thickening is evident. Right posterior basilar pleural thickening and lung field scarring is again identified. No new mass in the interval. Marked centrilobular emphysematous involvement along aguilar noted. Large bulla involves the right apex. Bullae the anterior lung bases noted. Left renal superior pole low-attenuation cyst is stable. Stomach is distended with debris. Bony structures are unremarkable. Impression: Right posterior pleural thickening and basilar scarring are unchanged. No new mass is evident. No suspicious infiltrate or effusion. Significant emphysematous involvement along aguilar again noted. Bronchial wall thickening compatible with bronchitis. PQRS Compliance Statement: One or more of the following individualized dose reduction techniques were utilized for this examination: 1. Automated exposure control 2. Adjustment of the mA and/or kV according to patient size 3. Use of iterative reconstruction technique Electronically signed by: Simin Ontiveros MD (07/26/2019 8:28 PM) [facility] VTE Prophylaxis Ordered VTE Prophylaxis Devices: Yes VTE Pharmacological Prophylaxi: Yes Assessment/Plan Assessment/Plan Impression: acute exac of copd acute hypoxic resp failure Right posterior pleural thickening and basilar scarring are unchanged. No suspicious infiltrate or effusion. Significant emphysematous involvement along aguilar again noted. Bronchial wall thickening compatible with bronchitis. Normal bilateral lower extremity duplex ultrasound exam. No evidence of deep venous thrombus involving the lower extremities. pulmonary hyperinflation is present. Right lateral mid thoracic opacity is present History of narcotic dependence. History of deep venous thrombosis on chronic anticoagulation. History of chronic narcotic use secondary to Chronic pain syndrome. Swelling of both lower extremities SUSPECT COR pulmonale vs right sided heart failure Acute bronchitis hx hypercapnic resp failure, severe 08/21 plan admit duonebs qid echo iv diuresis PRN iv antibiotics leg elevation NO STEROIDS FOR NOW abg HAS HOME BIPAP BUT NOT COMPLIANT DUE TO POOR FITTING MASK 74 MIN PT EXAM, CHART REVIEW, > 50% OF TIME SPENT WITH EXAM, CHART REVIEW, PT CARE COORDINATION ENMANUEL NIXON MD Jul 27, 2019 07:29
[2019-07-27] MEDS ORDERED: NON FORMULARY ITEM (Albuterol Sulfate (Albuterol Sulfate Conc Neb Soln) 1 VIAL) NEB SCH (10:30)
[2019-07-27] MEDS ORDERED: HYDROcodone/APAP 5/325MG 1 TAB TABLET PO PRN (10:30)
[2019-07-27] MEDS ORDERED: guaiFENesin ORAL 200 MG/10 ML LIQUID. PO PRN (10:30)
[2019-07-27] MEDS ORDERED: ONDANSETRON PF 4 MG/2 ML VIAL. IV PRN (10:30)
[2019-07-27] MEDS ORDERED: ACETAMINOPHEN 325 MG TABLET. PO PRN (10:30)
[2019-07-27] MEDS ORDERED: 0.9 % SODIUM CHLORIDE 10 ML DISP.SYRIN. IV PRN (10:30)
[2019-07-27] MEDS ORDERED: DOCUSATE SODIUM 100 MG CAPSULE. PO PRN (10:30)
[2019-07-27] MEDS ORDERED: cloNIDine HCL 0.1 MG TABLET PO PRN (10:30)
[2019-07-27] MEDS ORDERED: ONDANSETRON ODT 4 MG TAB.RAPDIS. PO PRN (10:30)
[2019-07-27] MEDS ORDERED: ACETAMINOPHEN 500 MG TABLET PO PRN (10:30)
[2019-07-27] MEDS ORDERED: IPRATRPIUM/ALBUTEROL 0.5/2.5MG 3 ML NEBU. NEB SCH (10:30)
[2019-07-27] MEDS ORDERED: ALBUTEROL SULFATE 2.5 MG/3 ML NEBU. NEB PRN (11:15)
[2019-07-27] MEDS ORDERED: guaiFENesin DM 200MG/20MG 10 ML SYRUP PO PRN (11:15)
[2019-07-27 11:23] LABS: BASE EXCESS COOX 9 mmol/L (-3-3); HCO3 COOX 39 mmol/L (21-28); METHEMOGLOBIN 0.3 % (0.0-1.9); OXYHEMOGLOBIN 96.5 %; PO2 COOX 102 mmHg (65-108); SAT O2 COOX 97 % (92-99)
[2019-07-27 11:25] LABS: PCO2 COOX 77 mmHg (35-46)
[2019-07-27] MEDS ORDERED: POLYVINYL ALCOHOL 1.4% OPHTH SOLUTION 15ML BOTTLE. OU PRN (11:30)
[2019-07-27] MEDS ORDERED: NICOTINE 21MG PATCH. TD PRN (12:00)
[2019-07-27] MEDS: PANTOPRAZOLE 40 MG TABLET.DR. PO SCH (12:02)
[2019-07-27] MEDS: APIXABAN 5 MG TABLET. PO SCH ×2 (12:02→20:35)
[2019-07-27] MEDS: predniSONE 20 MG TABLET PO SCH (12:03)
[2019-07-27] MEDS: LACTOBACILLUS RHAMNOSUS GG 1 CAPSULE. PO SCH ×2 (12:03→20:35)
[2019-07-27] MEDS: CHOLECALCIFEROL (VITAMIN D3) 5,000 UNIT CAPSULE PO SCH (12:03)
[2019-07-27] MEDS: VENLAFAXINE XR 37.5 MG CAP.ER.24H. PO SCH (12:03)
[2019-07-27] MEDS: amLODIPine BESYLATE 10 MG TABLET PO SCH (12:03)
[2019-07-27] MEDS: PIPERACILLIN/TAZOBACTAM 3.375 GM in IV NORMAL SALINE 50ML 50 ML IV SCH ×2 (12:04→17:04)
[2019-07-27] MEDS: DIVALPROEX EXTENDED RELEASE 250 MG TAB.ER.24H. PO SCH (12:04)
[2019-07-27] MEDS: GABAPENTIN 300 MG CAPSULE. PO SCH ×3 (12:04→20:34)
[2019-07-27] MEDS: LIDOCAINE (700MG/PATCH) PATCH. TP SCH (12:04)
[2019-07-27] MEDS: TRIHEXYPHENIDYL 2 MG TABLET. PO SCH (12:04)
[2019-07-27] MEDS: clonazePAM 0.5 MG TABLET PO PRN (12:39)
[2019-07-27] MEDS: IPRATRPIUM/ALBUTEROL 0.5/2.5MG 3 ML NEBU. NEB SCH ×3 (13:00→20:41)
--- NOTE | 2019-07-27 16:13 | EKG ---
[facility] [address] [place] [address] Test Date: 2019-07-26 Test Time: 17:44:10 Pat Name: JUVENTINO CA Department: Room: Gender: M [employer]: : [id number] Requested By: VAHID BENNETT Order Number: [id number] Reading MD: Measurements Intervals [place] Rate: 86 P: 34 NV: 162 QRS: 76 QRSD: 128 T: 48 QT: 400 QTc: 481 Interpretive Statements SINUS RHYTHM RIGHT BUNDLE BRANCH BLOCK ABNORMAL ECG No previous ECG available for comparison
[2019-07-27] MEDS: MONTELUKAST SODIUM 10 MG TABLET. PO SCH (20:34)
[2019-07-27] MEDS: POTASSIUM CHLORIDE 20 MEQ TABLET.ER. PO SCH (20:35)
--- NOTE | 2019-07-27 21:32 | CONS ---
DATE OF CONSULTATION: PULMONARY CONSULTATION ATTENDING PHYSICIAN: Skinny Watkins MD REASON FOR CONSULTATION: Dyspnea, leg swelling. HISTORY OF PRESENT ILLNESS: The patient is a 58-year-old male who has a long history of tobacco use and suspect underlying severe COPD. The patient presents to the hospital from long-term care with some swelling in his right lower extremity. By the time I saw the patient, he says the swelling is much better. I do not see any significant difference in leg edema in one or the other leg. The patient's chest x-ray and noncontrast CT chest was reviewed. The CT chest showed evidence of bullous emphysema in the right upper lobe. There were no consolidation seen. There is some pleural thickening at the right base along with some scarring. The patient's arterial blood gases were abnormal with a pH of 7.32, pCO2 of 77, pO2 102. This was obtained on 2 liters. Denies any headaches, no nausea, vomiting, no diarrhea, no chest pains. No headaches. Consultation requested for further evaluation and management. Apparently, there has been mention of a DVT in his history, but I asked the patient in detail, and he is not aware of any DVT or pulmonary embolism. He is on Eliquis and he thinks that it was related to his arrhythmias. He said his heart rate was intermittently low and fast. PAST MEDICAL HISTORY: Significant for anxiety, bipolar disorder, history of COPD, unknown FEV1, suspect severe history of hypertension, history of sleep apnea, mood disorder, chronic pain, cervical dystonia. PAST SURGICAL HISTORY: No recent surgery. ALLERGIES: None to any medications. CURRENT MEDICATIONS: Reviewed as listed in the MRAD including DuoNebs, antibiotic Zosyn, Eliquis. REVIEW OF SYSTEMS: Twelve-point system obtained. Pertinent positives discussed in my history of present illness, otherwise noncontributory. All systems that were negative were reviewed as well. SOCIAL HISTORY: Smoked for at least 40 years. PHYSICAL EXAMINATION: VITAL SIGNS: Reviewed. Blood pressure 150/72, pulse ox 98% on 2 liters, afebrile. HEENT: Sclerae nonicteric. NECK: Supple. LUNGS: With diminished breath sounds, no wheezing. CARDIOVASCULAR: Regular rate. ABDOMEN: Soft, nontender. EXTREMITIES: No significant pitting edema. LABORATORY DATA: Labs are reviewed. ABGs as discussed in my history of present illness. BUN 20, creatinine 1.0. INR 1.0. White cell count 7.4, hemoglobin 13.4 and platelets are 248. IMPRESSION: 1. Hgshy-wo-wozeyee hypercapnic respiratory failure secondary to acute exacerbation of chronic obstructive pulmonary disease. Clinically, looks good. Arterial blood gas shows mild decompensation with hypercapnia. Likely contributed by hyperoxia. 2. Abnormal CT chest with evidence of bullous emphysema in the right upper lobe and also pleural thickening and scarring the right lower lobe. No definite consolidation seen. 3. No evidence of deep venous thrombosis or pulmonary embolism in prior CT angiogram since 2018. The patient documents no history of deep venous thrombosis. As reported in the H and P. 4. Use of anticoagulation. Likely related to past history of arrhythmias. 5. Reported leg edema. Improved since hospitalization. No evidence of deep venous thrombosis. RECOMMENDATIONS: 1. I have discussed with RN. At this point, I do not see a need for BiPAP. I would reduce the oxygen down to 1 liter, keep saturation around 90% and repeat ABGs in the morning. 2. Continue present bronchodilators. 3. Antibiotics can be deescalated soon. I do not see any evidence of respiratory tract infection. 4. Oral prednisone with taper. 5. Continue DuoNebs. 6. Eliquis per PCP. No pulmonary etiology for use of anticoagulation. 7. Discussed with RN and we will follow along with you. Hopefully, discharge in the next 24 hours. KATHARINE KOCH MD DR: REINALDO/winter JOB#: [id number] / [id number]
[2019-07-28] MEDS: PIPERACILLIN/TAZOBACTAM 3.375 GM in IV NORMAL SALINE 50ML 50 ML IV SCH ×4 (00:03→17:13)
[2019-07-28] MEDS: MORPHINE IR 15 MG TABLET PO PRN ×5 (00:05→22:14)
[2019-07-28] MEDS: clonazePAM 0.5 MG TABLET PO PRN ×2 (00:05→22:14)
[2019-07-28 03:00] VITALS: BP 127/73
[2019-07-28 05:17] LABS: BASO % 0 % (0-3); EOS % 0 % (0-3); HEMATOCRIT 38.7 % (39.0-53.0); LYMPH # 0.9 x10^3/uL (1.0-4.8); LYMPH % 10 % (24-48); MEAN CORPUSCULAR HEMOGLOBIN 31 pg (25-35); MEAN CORPUSCULAR HGB CONC 34 g/dL (31-37); MEAN CORPUSCULAR VOLUME 92 fL (79-100); MONO # 0.7 x10^3/uL (0.0-1.1); MONO % 8 % (0-9); NEUT # 7.3 x10^3/uL (1.8-7.7); NEUT % 82 % (31-73); PLATELET COUNT 225 x10^3/uL (140-400); RED CELL DISTRIBUTION WIDTH 13.3 % (11.5-14.5); WHITE BLOOD COUNT 8.8 x10^3/uL (4.0-11.0)
[2019-07-28 05:35] LABS: CALCIUM 9.4 mg/dL (8.5-10.1); CREATININE 0.7 mg/dL (0.7-1.3); POTASSIUM 4.1 mmol/L (3.5-5.1)
[2019-07-28 07:00] VITALS: BP 132/66
[2019-07-28] MEDS: IPRATRPIUM/ALBUTEROL 0.5/2.5MG 3 ML NEBU. NEB SCH ×4 (07:57→18:22)
[2019-07-28 08:21] LABS: BASE EXCESS ABG 5 mmol/L (-3-3); HCO3 ABG 33 mmol/L (21-28); SAT O2 ABG 84 % (92-99)
[2019-07-28 08:24] LABS: PCO2 ABG 66 mmHg (35-46); PO2 ABG 50 mmHg (65-108)
--- NOTE | 2019-07-28 08:33 | PDOC ---
PROGRESS NOTES Chief Complaint Chief Complaint Acute on chronic hypercapnic respiratory failure secondary to acute exacerbation of chronic obstructive pulmonary disease and contributed by narcotics and benzodiazepines. *Elevated d-dimer with no evidence of pulmonary embolism on CTA of the chest *History of narcotic dependence. *History of deep venous thrombosis on chronic anticoagulation. *History of chronic narcotic use secondary to Chronic pain syndrome. 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 ABG revealed a pH of 7.32, pCO2 of 77, pO2 102. This was obtained on 2 liters. Pulmonary Consultation requested CT Chest - Right posterior pleural thickening and basilar scarring are unchange d. No new mass is evident. No suspicious infiltrate or effusion. Significant emphysematous involvement along aguilar again noted. Bronchial wall thickening compatible with bronchitis. He is feeling pretty weak today, having trouble getting up out of bed. No CP. Slight cough. SOB improved slightly. Vitals Vitals Vital Signs Date Time Temp Pulse Resp B/P (MAP) Pulse Ox O2 Delivery O2 Flow Rate FiO2 07/28/19 08:03 Room Air 07/28/19 03:00 98.2 77 18 127/73 (91) 90 98.2 07/27/19 13:45 1.0 Physical Exam General: Alert, Oriented X3, Cooperative, No acute distress Lungs: Other Abdomen: Normal bowel sounds, Soft Extremities: No cyanosis, No edema Labs LABS Laboratory Tests Test 07/27/19 11:00 07/28/19 03:58 07/28/19 08:00 O2 Saturation 97 % (92-99) 84 % (92-99) Arterial Blood pH 7.32 (7.35-7.45) 7.32 (7.35-7.45) Arterial Blood pCO2 at Patient Temp 77 mmHg (35-46) 66 mmHg (35-46) Arterial Blood pO2 at Patient Temp 102 mmHg (65-108) 50 mmHg (65-108) Arterial Blood HCO3 39 mmol/L (21-28) 33 mmol/L (21-28) Arterial Blood Base Excess 9 mmol/L (-3-3) 5 mmol/L (-3-3) Oxyhemoglobin 96.5 % Methemoglobin 0.3 % (0.0-1.9) Carbon Monoxide, Quantitative 0.3 % (0.0-1.9) FiO2 28 White Blood Count 8.8 x10^3/uL (4.0-11.0) Red Blood Count 4.20 x10^6/uL (4.30-5.70) Hemoglobin 13.0 g/dL (13.0-17.5) Hematocrit 38.7 % (39.0-53.0) Mean Corpuscular Volume 92 fL (79-100) Mean Corpuscular Hemoglobin 31 pg (25-35) Mean Corpuscular Hemoglobin Concent 34 g/dL (31-37) Red Cell Distribution Width 13.3 % (11.5-14.5) Platelet Count 225 x10^3/uL (140-400) Neutrophils (%) (Auto) 82 % (31-73) Lymphocytes (%) (Auto) 10 % (24-48) Monocytes (%) (Auto) 8 % (0-9) Eosinophils (%) (Auto) 0 % (0-3) Basophils (%) (Auto) 0 % (0-3) Neutrophils # (Auto) 7.3 x10^3/uL (1.8-7.7) Lymphocytes # (Auto) 0.9 x10^3/uL (1.0-4.8) Monocytes # (Auto) 0.7 x10^3/uL (0.0-1.1) Eosinophils # (Auto) 0.0 x10^3/uL (0.0-0.7) Basophils # (Auto) 0.0 x10^3/uL (0.0-0.2) Sodium Level 141 mmol/L (136-145) Potassium Level 4.1 mmol/L (3.5-5.1) Chloride Level 102 mmol/L (98-107) Carbon Dioxide Level 31 mmol/L (21-32) Anion Gap 8 (6-14) Blood Urea Nitrogen 15 mg/dL (8-26) Creatinine 0.7 mg/dL (0.7-1.3) Estimated GFR (Cockcroft-Gault) 115.0 Glucose Level 98 mg/dL (70-99) Calcium Level 9.4 mg/dL (8.5-10.1) Assessment and Plan Assessmemt and Plan Problems Medical Problems: (1) Acute bronchitis Status: Acute Comment Review of Relevant I have reviewed the following items zurdo (where applicable) has been applied. Labs Laboratory Tests Test 07/26/19 17:35 07/26/19 18:45 07/27/19 11:00 07/28/19 03:58 White Blood Count 7.4 x10^3/uL (4.0-11.0) 8.8 x10^3/uL (4.0-11.0) Red Blood Count 4.35 x10^6/uL (4.30-5.70) 4.20 x10^6/uL (4.30-5.70) Hemoglobin 13.4 g/dL (13.0-17.5) 13.0 g/dL (13.0-17.5) Hematocrit 40.1 % (39.0-53.0) 38.7 % (39.0-53.0) Mean Corpuscular Volume 92 fL (79-100) 92 fL (79-100) Mean Corpuscular Hemoglobin 31 pg (25-35) 31 pg (25-35) Mean Corpuscular Hemoglobin Concent 33 g/dL (31-37) 34 g/dL (31-37) Red Cell Distribution Width 13.6 % (11.5-14.5) 13.3 % (11.5-14.5) Platelet Count 248 x10^3/uL (140-400) 225 x10^3/uL (140-400) Neutrophils (%) (Auto) 64 % (31-73) 82 % (31-73) Lymphocytes (%) (Auto) 20 % (24-48) 10 % (24-48) Monocytes (%) (Auto) 12 % (0-9) 8 % (0-9) Eosinophils (%) (Auto) 3 % (0-3) 0 % (0-3) Basophils (%) (Auto) 1 % (0-3) 0 % (0-3) Neutrophils # (Auto) 4.8 x10^3/uL (1.8-7.7) 7.3 x10^3/uL (1.8-7.7) Lymphocytes # (Auto) 1.5 x10^3/uL (1.0-4.8) 0.9 x10^3/uL (1.0-4.8) Monocytes # (Auto) 0.9 x10^3/uL (0.0-1.1) 0.7 x10^3/uL (0.0-1.1) Eosinophils # (Auto) 0.2 x10^3/uL (0.0-0.7) 0.0 x10^3/uL (0.0-0.7) Basophils # (Auto) 0.1 x10^3/uL (0.0-0.2) 0.0 x10^3/uL (0.0-0.2) Prothrombin Time 12.9 SEC (11.7-14.0) Prothromb Time International Ratio 1.0 (0.8-1.1) Sodium Level 144 mmol/L (136-145) 141 mmol/L (136-145) Potassium Level 3.8 mmol/L (3.5-5.1) 4.1 mmol/L (3.5-5.1) Chloride Level 102 mmol/L (98-107) 102 mmol/L (98-107) Carbon Dioxide Level 37 mmol/L (21-32) 31 mmol/L (21-32) Anion Gap 5 (6-14) 8 (6-14) Blood Urea Nitrogen 20 mg/dL (8-26) 15 mg/dL (8-26) Creatinine 1.0 mg/dL (0.7-1.3) 0.7 mg/dL (0.7-1.3) Estimated GFR (Cockcroft-Gault) 76.2 115.0 BUN/Creatinine Ratio 20 (6-20) Glucose Level 140 mg/dL (70-99) 98 mg/dL (70-99) Calcium Level 9.9 mg/dL (8.5-10.1) 9.4 mg/dL (8.5-10.1) Magnesium Level 2.2 mg/dL (1.8-2.4) Total Bilirubin 0.3 mg/dL (0.2-1.0) Aspartate Amino Transf (AST/SGOT) 19 U/L (15-37) Alanine Aminotransferase (ALT/SGPT) 23 U/L (16-63) Alkaline Phosphatase 98 U/L (46-116) Creatine Kinase 217 U/L (39-308) Creatine Kinase MB (Mass) 2.5 ng/mL (0.0-3.6) Creatine Kinase MB Relative Index 1.2 % (0-4) Troponin I Quantitative < 0.017 ng/mL (0.000-0.055) LT-Ram-J-Type Natriuretic Peptide 107 pg/mL (0-124) Total Protein 7.4 g/dL (6.4-8.2) Albumin 4.0 g/dL (3.4-5.0) Albumin/Globulin Ratio 1.2 (1.0-1.7) Urine Collection Type Unknown Urine Color Yellow Urine Clarity Clear Urine pH 6.5 Urine Specific [place] 1.020 Urine Protein Negative mg/dL (NEG-TRACE) Urine Glucose (UA) Negative mg/dL (NEG) Urine Ketones (Stick) Negative mg/dL (NEG) Urine Blood Negative (NEG) Urine Nitrite Negative (NEG) Urine Bilirubin Negative (NEG) Urine Urobilinogen Dipstick 0.2 mg/dL (0.2 mg/dL) Urine Leukocyte Esterase Negative (NEG) Urine RBC 0 /HPF (0-2) Urine WBC 0 /HPF (0-4) Urine Squamous Epithelial Cells None /LPF Urine Bacteria 0 /HPF (0-FEW) Urine Mucus Slight /LPF O2 Saturation 97 % (92-99) Arterial Blood pH 7.32 (7.35-7.45) Arterial Blood pCO2 at Patient Temp 77 mmHg (35-46) Arterial Blood pO2 at Patient Temp 102 mmHg (65-108) Arterial Blood HCO3 39 mmol/L (21-28) Arterial Blood Base Excess 9 mmol/L (-3-3) Oxyhemoglobin 96.5 % Methemoglobin 0.3 % (0.0-1.9) Carbon Monoxide, Quantitative 0.3 % (0.0-1.9) FiO2 28 Test 07/28/19 08:00 O2 Saturation 84 % (92-99) Arterial Blood pH 7.32 (7.35-7.45) Arterial Blood pCO2 at Patient Temp 66 mmHg (35-46) Arterial Blood pO2 at Patient Temp 50 mmHg (65-108) Arterial Blood HCO3 33 mmol/L (21-28) Arterial Blood Base Excess 5 mmol/L (-3-3) Laboratory Tests Test 07/27/19 11:00 07/28/19 03:58 07/28/19 08:00 O2 Saturation 97 % (92-99) 84 % (92-99) Arterial Blood pH 7.32 (7.35-7.45) 7.32 (7.35-7.45) Arterial Blood pCO2 at Patient Temp 77 mmHg (35-46) 66 mmHg (35-46) Arterial Blood pO2 at Patient Temp 102 mmHg (65-108) 50 mmHg (65-108) Arterial Blood HCO3 39 mmol/L (21-28) 33 mmol/L (21-28) Arterial Blood Base Excess 9 mmol/L (-3-3) 5 mmol/L (-3-3) Oxyhemoglobin 96.5 % Methemoglobin 0.3 % (0.0-1.9) Carbon Monoxide, Quantitative 0.3 % (0.0-1.9) FiO2 28 White Blood Count 8.8 x10^3/uL (4.0-11.0) Red Blood Count 4.20 x10^6/uL (4.30-5.70) Hemoglobin 13.0 g/dL (13.0-17.5) Hematocrit 38.7 % (39.0-53.0) Mean Corpuscular Volume 92 fL (79-100) Mean Corpuscular Hemoglobin 31 pg (25-35) Mean Corpuscular Hemoglobin Concent 34 g/dL (31-37) Red Cell Distribution Width 13.3 % (11.5-14.5) Platelet Count 225 x10^3/uL (140-400) Neutrophils (%) (Auto) 82 % (31-73) Lymphocytes (%) (Auto) 10 % (24-48) Monocytes (%) (Auto) 8 % (0-9) Eosinophils (%) (Auto) 0 % (0-3) Basophils (%) (Auto) 0 % (0-3) Neutrophils # (Auto) 7.3 x10^3/uL (1.8-7.7) Lymphocytes # (Auto) 0.9 x10^3/uL (1.0-4.8) Monocytes # (Auto) 0.7 x10^3/uL (0.0-1.1) Eosinophils # (Auto) 0.0 x10^3/uL (0.0-0.7) Basophils # (Auto) 0.0 x10^3/uL (0.0-0.2) Sodium Level 141 mmol/L (136-145) Potassium Level 4.1 mmol/L (3.5-5.1) Chloride Level 102 mmol/L (98-107) Carbon Dioxide Level 31 mmol/L (21-32) Anion Gap 8 (6-14) Blood Urea Nitrogen 15 mg/dL (8-26) Creatinine 0.7 mg/dL (0.7-1.3) Estimated GFR (Cockcroft-Gault) 115.0 Glucose Level 98 mg/dL (70-99) Calcium Level 9.4 mg/dL (8.5-10.1) Medications Current Medications Morphine Sulfate (Morphine Sulfate) 4 mg PRN Q15MIN PRN IV/SQ PAIN GREATER THAN 3/10 Last administered on 07/26/19at 20:08; Start 07/26/19 at 17:45; Stop 07/27/19 at 17:44; Status DC Iohexol (Omnipaque 300 Mg/ml) 75 ml 1X ONCE IV Last administered on 07/26/19at 19:15; Start 07/26/19 at 19:15; Stop 07/26/19 at 19:17; Status DC Info (CONTRAST GIVEN -- Rx MONITORING) 1 each PRN DAILY PRN MC SEE COMMENTS; Start 07/26/19 at 19:30; Stop 07/28/19 at 19:29 Morphine Sulfate (Morphine Ir) 15 mg PRN Q4HRS PRN PO PAIN Last administered on 07/28/19at 05:49; Start 07/27/19 at 06:15 Acetaminophen (Tylenol) 500 mg PRN Q6HRS PRN PO PAIN; Start 07/27/19 at 10:30; Stop 07/27/19 at 11:12; Status DC Amlodipine Besylate (Norvasc) 10 mg DAILY PO Last administered on 07/27/19at 12:03; Start 07/27/19 at 12:00 Apixaban (Eliquis) 5 mg BID PO Last administered on 07/27/19at 20:35; Start 07/27/19 at 12:00 Divalproex Sodium (Depakote Er) 250 mg DAILY PO Last administered on 07/27/19at 12:04; Start 07/27/19 at 12:00 Gabapentin (Neurontin) 300 mg QID PO Last administered on 07/27/19 20:34; Start 07/27/19 at 13:00 Hydralazine HCl (Apresoline) 50 mg QID PO Last administered on 07/27/19at 20:35; Start 07/27/19 at 13:00 Acetaminophen/ Hydrocodone Bitart (Lortab 5/325) 1 tab PRN Q4HRS PRN PO PAIN; Start 07/27/19 at 10:30; Status Hold Albuterol/ Ipratropium (Duoneb) 3 ml QID NEB Last administered on 07/28/19at 07:57; Start 07/27/19 at 13:00 Lidocaine (Lidoderm) 1 patch DAILY TP Last administered on 07/27/19at 12:04; Start 07/27/19 at 12:00 Montelukast Sodium (Singulair) 10 mg HS PO Last administered on 07/27/19at 20:34; Start 07/27/19 at 21:00 Nicotine (Nicoderm Cq 21mg) 1 patch PRN DAILY PRN TD SMOKING CESSATION; Start 07/27/19 at 12:00 Ondansetron HCl (Zofran Odt) 4 mg PRN Q6HRS PRN PO NAUSEA; Start 07/27/19 at 10:30 Potassium Chloride (Klor-Con) 20 meq BID PO Last administered on 07/27/19at 20:35; Start 07/27/19 at 21:00 Non-Formulary Medication (Albuterol Sulfate (Albuterol Sulfate Conc Neb Soln)) 1 vial PRN Q4HRS NEB ; Start 07/27/19 at 10:30; Stop 07/27/19 at 11:13; Status DC Vitamin D (Vitamin D3) 5,000 unit DAILY PO Last administered on 07/27/19at 12:03; Start 07/27/19 at 12:00 Clonazepam (KlonoPIN) 1 mg PRN BID PRN PO ANXIETY / AGITATION Last administered on 07/28/19at 00:05; Start 07/27/19 at 11:15 Artificial Tears (Artificial Tears) 1 drop PRN Q15MIN PRN OU DRY EYE; Start 07/27/19 at 11:30 Guaifenesin (Robitussin Dm) 10 ml PRN Q6HRS PRN PO COUGH; Start 07/27/19 at 11:15 Lactobacillus Rhamnosus (Culturelle) 1 cap BID PO Last administered on 07/27/19at 20:35; Start 07/27/19 at 12:00 Pantoprazole Sodium (Protonix) 40 mg DAILYAC PO Last administered on 07/27/19at 12:02; Start 07/27/19 at 12:00 Trihexyphenidyl HCl (Artane) 5 mg DAILY08 PO Last administered on 07/27/19at 12:04; Start 07/27/19 at 12:00 Venlafaxine HCl (Effexor Xr) 75 mg DAILY PO Last administered on 07/27/19at 12:03; Start 07/27/19 at 12:00 Piperacillin Sod/ Tazobactam Sod 3.375 gm/Sodium Chloride 50 ml @ 100 mls/hr Q6HRS IV Last administered on 07/28/19at 05:31; Start 07/27/19 at 12:00 Sodium Chloride (Normal Saline Flush) 3 ml QSHIFT PRN IV AFTER MEDS AND BLOOD DRAWS; Start 07/27/19 at 10:30 Ondansetron HCl (Zofran) 4 mg PRN Q4HRS PRN IV NAUSEA/VOMITING; Start 07/27/19 at 10:30 Acetaminophen (Tylenol) 650 mg PRN Q4HRS PRN PO TEMP OVER 100.4F OR MILD PAIN; Start 07/27/19 at 10:30 Clonidine HCl (Catapres) 0.1 mg PRN Q6HRS PRN PO SBP>160 OR DBP>90; Start at 10:30 Docusate Sodium (Colace) 100 mg PRN BID PRN PO CONSTIPATION; Start 07/27/19 at 10:30 Albuterol/ Ipratropium (Duoneb) 3 ml Q4H NEB Last administered on 07/27/19at 11:07; Start 07/27/19 at 10:30; Stop 07/27/19 at 16:29; Status DC Guaifenesin (Robitussin) 200 mg PRN Q4HRS PRN PO COUGH; Start 07/27/19 at 10:30 Prednisone (Prednisone) 40 mg DAILY PO Last administered on 07/27/19at 12:03; Start 07/27/19 at 12:00 Albuterol Sulfate (Ventolin Neb Soln) 2.5 mg PRN Q4HRS PRN NEB SHORTNESS OF BREATH; Start 07/27/19 at 11:15 Active Scripts Active Prednisone 20 Mg Tablet 40 Mg PO DAILY 3 Days Doxycycline Hyclate 100 Mg Tablet 100 Mg PO BID 3 Days Reported Divalproex Sodium Er (Divalproex Sodium) 500 Mg Tab.er.24h 250 Mg PO DAILY Protonix (Pantoprazole Sodium) 20 Mg Tablet.dr 40 Mg PO DAILY Lidocaine PATCH (Lidocaine) 1 Each Adh..patch 1 Each TP DAILY Zofran Odt (Ondansetron) 4 Mg Tab.rapdis 1 Tab SL PRN Q6HRS PRN NICODERM CQ 21mg (Nicotine) 1 Each Patch.td24 1 Patch TP PRN DAILY Acetaminophen 500 Mg Tablet 1 Tab PO PRN Q6HRS PRN Montelukast Sodium Tablet (Montelukast Sodium) 10 Mg Tablet 10 Mg PO HS Robitussin Cough-Chest Dm Liq (Guaifenesin/Dextromethorphan) 237 Ml Liquid 237 Ml PO PRN QID PRN Acidophilus Lactobacilli (Lactobacillus Acidophilus) 1 Each Capsule 1 Each PO BID Duoneb 0.5-3(2.5) Mg/3 Ml (Albuterol/Ipratropium) 3 Ml Ampul.neb 3 Ml NEB QID Artificial Tears Eye Drops (Dextran 70/Hypromellose) 15 Ml Drops 1 Drop EACHEYE Q4HRS PRN Hydrocodone-Apap 5-325 (Hydrocodone Bit/Acetaminophen) 1 Each Tablet 1 Tab PO PRN Q4HRS PRN Albuterol Sulfate Conc Neb Soln (Albuterol Sulfate) 2.5 Mg/0.5 Ml Vial.neb 1 Vial NEB PRN Q4HRS Vitamin D3 (Cholecalciferol (Vitamin D3)) 5,000 Unit Tablet 1 Tab PO DAILY Trihexyphenidyl Hcl 5 Mg Tablet 1 Tab PO DAILY08 Potassium Chloride (Potassium Chloride) 20 Meq Tablet.er 20 Meq PO BID Hydralazine Hcl 50 Mg Tablet 1 Tab PO QID Gabapentin (Gabapentin) 300 Mg Capsule 300 Mg PO QID Eliquis (Apixaban) 5 Mg Tablet 5 Mg PO BID Amlodipine Besylate 10 Mg Tablet 10 Mg PO DAILY Venlafaxine Hcl Er (Venlafaxine Hcl) 75 Mg Cap.er.24h 1 Cap PO DAILY Clonazepam 2 Mg Tablet 1 Tab PO PRN HS Clonazepam 1 Mg Tablet 1 Mg PO PRN BID Vitals/I & O Vital Sign - Last 24 Hours 07/27/19 07/27/19 07/27/19 07/27/19 10:55 11:10 12:02 12:03 Temp 97.9 97.9 Pulse 58 58 58 Resp 19 B/P (MAP) 150/72 (98) 150/72 150/72 Pulse Ox 97 98 O2 Delivery Nasal Cannula Nasal Cannula O2 Flow Rate 2.0 2.0 07/27/19 07/27/19 07/27/19 07/27/19 12:39 13:45 15:00 16:50 Temp 98.0 98.0 Pulse 73 Resp 18 B/P (MAP) 137/81 (99) Pulse Ox 93 98 O2 Delivery Nasal Cannula Nasal Cannula Room Air Room Air O2 Flow Rate 1.0 1.0 07/27/19 07/27/19 07/27/19 07/27/19 17:04 18:00 19:00 20:00 Temp 98.1 98.1 Pulse 73 98 Resp 18 B/P (MAP) 137/81 152/79 (103) Pulse Ox 90 O2 Delivery Room Air Room Air Room Air 07/27/19 07/27/19 07/27/19 07/28/19 20:35 20:41 23:00 03:00 Temp 99.0 98.2 99.0 98.2 Pulse 73 99 77 Resp 18 18 B/P (MAP) 137/81 144/72 (96) 127/73 (91) Pulse Ox 98 92 90 O2 Delivery Room Air Room Air Room Air 07/28/19 07/28/19 07:14 08:03 O2 Delivery Room Air Room Air Intake and Output 07/27/19 07/27/19 07/28/19 15:00 23:00 07:00 Intake Total 650 ml 300 ml 50 ml Output Total 600 ml 1050 ml Balance 650 ml -300 ml -1000 ml SAHRA PALUMBO MD Jul 28, 2019 08:33
[2019-07-28] MEDS: LACTOBACILLUS RHAMNOSUS GG 1 CAPSULE. PO SCH ×2 (08:35→20:13)
[2019-07-28] MEDS: TRIHEXYPHENIDYL 2 MG TABLET. PO SCH (08:36)
[2019-07-28] MEDS: POTASSIUM CHLORIDE 20 MEQ TABLET.ER. PO SCH ×2 (08:36→20:13)
[2019-07-28] MEDS: DIVALPROEX EXTENDED RELEASE 250 MG TAB.ER.24H. PO SCH (08:36)
[2019-07-28] MEDS: CHOLECALCIFEROL (VITAMIN D3) 5,000 UNIT CAPSULE PO SCH (08:36)
[2019-07-28] MEDS: predniSONE 20 MG TABLET PO SCH (08:36)
[2019-07-28] MEDS: APIXABAN 5 MG TABLET. PO SCH ×2 (08:36→20:14)
[2019-07-28] MEDS: VENLAFAXINE XR 37.5 MG CAP.ER.24H. PO SCH (08:36)
[2019-07-28] MEDS: GABAPENTIN 300 MG CAPSULE. PO SCH ×4 (08:36→20:14)
[2019-07-28] MEDS: PANTOPRAZOLE 40 MG TABLET.DR. PO SCH (08:36)
[2019-07-28] MEDS: amLODIPine BESYLATE 10 MG TABLET PO SCH (08:37)
[2019-07-28] MEDS: LIDOCAINE (700MG/PATCH) PATCH. TP SCH (08:37)
--- NOTE | 2019-07-28 08:57 | NUR ---
IP: Pt has a hx of + mrsa screen on 08/10/18. Pt to be in contact precautions until there are 2 negative screens 7 days apart. Recommend a mrsa screen then initiation of Nozin/CHG protocol.
--- NOTE | 2019-07-28 10:45 | PDOC ---
PULMONARY PROGRESS NOTES Subjective no soa Vitals Vital Signs Date Time Temp Pulse Resp B/P (MAP) Pulse Ox O2 Delivery O2 Flow Rate FiO2 07/28/19 08:37 72 132/66 07/28/19 08:03 Room Air 07/28/19 08:00 2.0 07/28/19 07:00 97.5 16 91 97.5 General: Alert, No acute distress Lungs: Clear Cardiovascular: S1 Abdomen: Soft, Non-tender Neuro Exam: Alert Extremities: No Edema Skin: Warm Labs Laboratory Tests Test 07/26/19 17:35 07/26/19 18:45 07/27/19 11:00 07/28/19 03:58 White Blood Count 7.4 x10^3/uL (4.0-11.0) 8.8 x10^3/uL (4.0-11.0) Red Blood Count 4.35 x10^6/uL (4.30-5.70) 4.20 x10^6/uL (4.30-5.70) Hemoglobin 13.4 g/dL (13.0-17.5) 13.0 g/dL (13.0-17.5) Hematocrit 40.1 % (39.0-53.0) 38.7 % (39.0-53.0) Mean Corpuscular Volume 92 fL (79-100) 92 fL (79-100) Mean Corpuscular Hemoglobin 31 pg (25-35) 31 pg (25-35) Mean Corpuscular Hemoglobin Concent 33 g/dL (31-37) 34 g/dL (31-37) Red Cell Distribution Width 13.6 % (11.5-14.5) 13.3 % (11.5-14.5) Platelet Count 248 x10^3/uL (140-400) 225 x10^3/uL (140-400) Neutrophils (%) (Auto) 64 % (31-73) 82 % (31-73) Lymphocytes (%) (Auto) 20 % (24-48) 10 % (24-48) Monocytes (%) (Auto) 12 % (0-9) 8 % (0-9) Eosinophils (%) (Auto) 3 % (0-3) 0 % (0-3) Basophils (%) (Auto) 1 % (0-3) 0 % (0-3) Neutrophils # (Auto) 4.8 x10^3/uL (1.8-7.7) 7.3 x10^3/uL (1.8-7.7) Lymphocytes # (Auto) 1.5 x10^3/uL (1.0-4.8) 0.9 x10^3/uL (1.0-4.8) Monocytes # (Auto) 0.9 x10^3/uL (0.0-1.1) 0.7 x10^3/uL (0.0-1.1) Eosinophils # (Auto) 0.2 x10^3/uL (0.0-0.7) 0.0 x10^3/uL (0.0-0.7) Basophils # (Auto) 0.1 x10^3/uL (0.0-0.2) 0.0 x10^3/uL (0.0-0.2) Prothrombin Time 12.9 SEC (11.7-14.0) Prothromb Time International Ratio 1.0 (0.8-1.1) Sodium Level 144 mmol/L (136-145) 141 mmol/L (136-145) Potassium Level 3.8 mmol/L (3.5-5.1) 4.1 mmol/L (3.5-5.1) Chloride Level 102 mmol/L (98-107) 102 mmol/L (98-107) Carbon Dioxide Level 37 mmol/L (21-32) 31 mmol/L (21-32) Anion Gap 5 (6-14) 8 (6-14) Blood Urea Nitrogen 20 mg/dL (8-26) 15 mg/dL (8-26) Creatinine 1.0 mg/dL (0.7-1.3) 0.7 mg/dL (0.7-1.3) Estimated GFR (Cockcroft-Gault) 76.2 115.0 BUN/Creatinine Ratio 20 (6-20) Glucose Level 140 mg/dL (70-99) 98 mg/dL (70-99) Calcium Level 9.9 mg/dL (8.5-10.1) 9.4 mg/dL (8.5-10.1) Magnesium Level 2.2 mg/dL (1.8-2.4) Total Bilirubin 0.3 mg/dL (0.2-1.0) Aspartate Amino Transf (AST/SGOT) 19 U/L (15-37) Alanine Aminotransferase (ALT/SGPT) 23 U/L (16-63) Alkaline Phosphatase 98 U/L (46-116) Creatine Kinase 217 U/L (39-308) Creatine Kinase MB (Mass) 2.5 ng/mL (0.0-3.6) Creatine Kinase MB Relative Index 1.2 % (0-4) Troponin I Quantitative < 0.017 ng/mL (0.000-0.055) XH-Jhr-N-Type Natriuretic Peptide 107 pg/mL (0-124) Total Protein 7.4 g/dL (6.4-8.2) Albumin 4.0 g/dL (3.4-5.0) Albumin/Globulin Ratio 1.2 (1.0-1.7) Urine Collection Type Unknown Urine Color Yellow Urine Clarity Clear Urine pH 6.5 Urine Specific [place] 1.020 Urine Protein Negative mg/dL (NEG-TRACE) Urine Glucose (UA) Negative mg/dL (NEG) Urine Ketones (Stick) Negative mg/dL (NEG) Urine Blood Negative (NEG) Urine Nitrite Negative (NEG) Urine Bilirubin Negative (NEG) Urine Urobilinogen Dipstick 0.2 mg/dL (0.2 mg/dL) Urine Leukocyte Esterase Negative (NEG) Urine RBC 0 /HPF (0-2) Urine WBC 0 /HPF (0-4) Urine Squamous Epithelial Cells None /LPF Urine Bacteria 0 /HPF (0-FEW) Urine Mucus Slight /LPF O2 Saturation 97 % (92-99) Arterial Blood pH 7.32 (7.35-7.45) Arterial Blood pCO2 at Patient Temp 77 mmHg (35-46) Arterial Blood pO2 at Patient Temp 102 mmHg (65-108) Arterial Blood HCO3 39 mmol/L (21-28) Arterial Blood Base Excess 9 mmol/L (-3-3) Oxyhemoglobin 96.5 % Methemoglobin 0.3 % (0.0-1.9) Carbon Monoxide, Quantitative 0.3 % (0.0-1.9) FiO2 28 Test 07/28/19 08:00 O2 Saturation 84 % (92-99) Arterial Blood pH 7.32 (7.35-7.45) Arterial Blood pCO2 at Patient Temp 66 mmHg (35-46) Arterial Blood pO2 at Patient Temp 50 mmHg (65-108) Arterial Blood HCO3 33 mmol/L (21-28) Arterial Blood Base Excess 5 mmol/L (-3-3) Laboratory Tests Test 07/27/19 11:00 07/28/19 03:58 07/28/19 08:00 O2 Saturation 97 % (92-99) 84 % (92-99) Arterial Blood pH 7.32 (7.35-7.45) 7.32 (7.35-7.45) Arterial Blood pCO2 at Patient Temp 77 mmHg (35-46) 66 mmHg (35-46) Arterial Blood pO2 at Patient Temp 102 mmHg (65-108) 50 mmHg (65-108) Arterial Blood HCO3 39 mmol/L (21-28) 33 mmol/L (21-28) Arterial Blood Base Excess 9 mmol/L (-3-3) 5 mmol/L (-3-3) Oxyhemoglobin 96.5 % Methemoglobin 0.3 % (0.0-1.9) Carbon Monoxide, Quantitative 0.3 % (0.0-1.9) FiO2 28 White Blood Count 8.8 x10^3/uL (4.0-11.0) Red Blood Count 4.20 x10^6/uL (4.30-5.70) Hemoglobin 13.0 g/dL (13.0-17.5) Hematocrit 38.7 % (39.0-53.0) Mean Corpuscular Volume 92 fL (79-100) Mean Corpuscular Hemoglobin 31 pg (25-35) Mean Corpuscular Hemoglobin Concent 34 g/dL (31-37) Red Cell Distribution Width 13.3 % (11.5-14.5) Platelet Count 225 x10^3/uL (140-400) Neutrophils (%) (Auto) 82 % (31-73) Lymphocytes (%) (Auto) 10 % (24-48) Monocytes (%) (Auto) 8 % (0-9) Eosinophils (%) (Auto) 0 % (0-3) Basophils (%) (Auto) 0 % (0-3) Neutrophils # (Auto) 7.3 x10^3/uL (1.8-7.7) Lymphocytes # (Auto) 0.9 x10^3/uL (1.0-4.8) Monocytes # (Auto) 0.7 x10^3/uL (0.0-1.1) Eosinophils # (Auto) 0.0 x10^3/uL (0.0-0.7) Basophils # (Auto) 0.0 x10^3/uL (0.0-0.2) Sodium Level 141 mmol/L (136-145) Potassium Level 4.1 mmol/L (3.5-5.1) Chloride Level 102 mmol/L (98-107) Carbon Dioxide Level 31 mmol/L (21-32) Anion Gap 8 (6-14) Blood Urea Nitrogen 15 mg/dL (8-26) Creatinine 0.7 mg/dL (0.7-1.3) Estimated GFR (Cockcroft-Gault) 115.0 Glucose Level 98 mg/dL (70-99) Calcium Level 9.4 mg/dL (8.5-10.1) Medications Active Scripts Medications Dose Route/Sig Max Daily Dose Days Date Category Prednisone 20 Mg Tablet 40 Mg PO DAILY 3 08/13/18 Rx Doxycycline Hyclate 100 Mg Tablet 100 Mg PO BID 3 08/13/18 Rx Divalproex Sodium Er (Divalproex Sodium) 500 Mg Tab.er.24h 250 Mg PO DAILY 08/10/18 Reported Protonix (Pantoprazole Sodium) 20 Mg Tablet.dr 40 Mg PO DAILY 08/10/18 Reported Lidocaine PATCH (Lidocaine) 1 Each Adh..patch 1 Each TP DAILY 08/10/18 Reported Zofran Odt (Ondansetron) 4 Mg Tab.rapdis 1 Tab SL PRN Q6HRS PRN 02/10/18 Reported NICODERM CQ 21mg (Nicotine) 1 Each Patch.td24 1 Patch TP PRN DAILY 02/10/18 Reported Acetaminophen 500 Mg Tablet 1 Tab PO PRN Q6HRS PRN 02/10/18 Reported Montelukast Sodium Tablet (Montelukast Sodium) 10 Mg Tablet 10 Mg PO HS 02/10/18 Reported Robitussin Cough-Chest Dm Liq (Guaifenesin/Dextromethorphan) 237 Ml Liquid 237 Ml PO PRN QID PRN 01/22/18 Reported Acidophilus Lactobacilli (Lactobacillus Acidophilus) 1 Each Capsule 1 Each PO BID 01/22/18 Reported Duoneb 0.5-3(2.5) Mg/3 Ml (Albuterol/Ipratropium) 3 Ml Ampul.neb 3 Ml NEB QID 10/02/17 Reported Artificial Tears Eye Drops (Dextran 70/Hypromellose) 15 Ml Drops 1 Drop EACHEYE Q4HRS PRN 10/02/17 Reported Hydrocodone-Apap 5-325 (Hydrocodone Bit/Acetaminophen) 1 Each Tablet 1 Tab PO PRN Q4HRS PRN 10/02/17 Reported Albuterol Sulfate Conc Neb Soln (Albuterol Sulfate) 2.5 Mg/0.5 Ml Vial.neb 1 Vial NEB PRN Q4HRS 10/02/17 Reported Vitamin D3 (Cholecalciferol (Vitamin D3)) 5,000 Unit Tablet 1 Tab PO DAILY 10/02/17 Reported Trihexyphenidyl Hcl 5 Mg Tablet 1 Tab PO DAILY08 10/02/17 Reported Potassium Chloride (Potassium Chloride) 20 Meq Tablet.er 20 Meq PO BID 10/02/17 Reported Hydralazine Hcl 50 Mg Tablet 1 Tab PO QID 10/02/17 Reported Gabapentin (Gabapentin) 300 Mg Capsule 300 Mg PO QID 10/02/17 Reported Eliquis (Apixaban) 5 Mg Tablet 5 Mg PO BID 10/02/17 Reported Amlodipine Besylate 10 Mg Tablet 10 Mg PO DAILY 10/02/17 Reported Venlafaxine Hcl Er (Venlafaxine Hcl) 75 Mg Cap.er.24h 1 Cap PO DAILY 10/02/17 Reported Clonazepam 2 Mg Tablet 1 Tab PO PRN HS 10/02/17 Reported Clonazepam 1 Mg Tablet 1 Mg PO PRN BID 10/02/17 Reported Impression . 1. [id number] hypercapnic respiratory failure secondary to acute exacerbation of chronic obstructive pulmonary disease. Clinically, looks good. Arterial blood gas shows mild decompensation with hypercapnia. 2. Abnormal CT chest with evidence of bullous emphysema in the right upper lobe and also pleural thickening and scarring the right lower lobe. No definite consolidation seen. 3. No evidence of deep venous thrombosis or pulmonary embolism in prior CT angiogram since 2018. The patient documents no history of deep venous thrombosis. As reported in the H and P. 4. Chronic anticoagulation. Likely related to past history of arrhythmias. 5. Reported leg edema. Improved since hospitalization. No evidence of deep venous thrombosis. Plan . 1. I have discussed with RN and patient. Patient does not like BiPAP but agreeable to use tonight.. I would reduce the oxygen down to 1 liter, keep saturation around 90% and repeat ABGs in the morning. If compensated , dc home in am 2. Continue present bronchodilators. 3. Antibiotics can be deescalated soon. I do not see any evidence of respiratory tract infection. 4. Oral prednisone with taper. 5. Continue DuoNebs. 6. Eliquis per PCP. No pulmonary etiology for use of anticoagulation. 7. Discussed with RN and we will follow along with you. Hopefully, discharge in the next 24 hours. KATHARINE KOCH MD Jul 28, 2019 10:45
[2019-07-28 11:00] VITALS: BP 159/69
[2019-07-28 15:00] VITALS: BP 149/80
--- NOTE | 2019-07-28 15:35 | NUR ---
SW following for discharge planning. Chart reviewed, discussed with RN. SW tried to verify pt is a resident of [facility] (ph: [phone], fax: [phone]), however the phone was not answered. Pt had an echo today. SW will continue to follow for discharge planning needs.
[2019-07-28 19:00] VITALS: BP 138/68
[2019-07-28] MEDS: MONTELUKAST SODIUM 10 MG TABLET. PO SCH (20:13)
[2019-07-28 23:00] VITALS: BP 136/66
[2019-07-29] MEDS: PIPERACILLIN/TAZOBACTAM 3.375 GM in IV NORMAL SALINE 50ML 50 ML IV SCH ×3 (00:24→12:00)
[2019-07-29 03:20] VITALS: BP 161/85
[2019-07-29] MEDS: MORPHINE IR 15 MG TABLET PO PRN ×2 (05:13→15:03)
[2019-07-29] MEDS: PANTOPRAZOLE 40 MG TABLET.DR. PO SCH ×2 (06:35→08:34)
[2019-07-29 07:00] VITALS: BP 152/62
--- NOTE | 2019-07-29 07:11 | PDOC ---
PULMONARY PROGRESS NOTES Subjective Pt. reports he wore BIPAP for about 4 hours last night. He is currently on 1 liter N/C, denies increase cough Vitals Vital Signs Date Time Temp Pulse Resp B/P (MAP) Pulse Ox O2 Delivery O2 Flow Rate FiO2 07/29/19 08:35 54 161/85 07/29/19 08:34 54 161/85 07/29/19 07:39 95 Nasal Cannula 1.0 07/29/19 07:00 97.5 58 16 152/62 (92) 91 BiPAP/CPAP 97.5 07/29/19 06:13 20 94 Nasal Cannula 1.0 07/29/19 05:13 20 94 Nasal Cannula 1.0 07/29/19 03:55 94 BiPAP/CPAP 07/29/19 03:20 97.5 54 16 161/85 (110) 92 BiPAP/CPAP 97.5 07/29/19 01:00 BiPAP/CPAP 07/28/19 23:14 18 94 Nasal Cannula 1.0 07/28/19 23:02 BiPAP/CPAP 07/28/19 23:00 97.7 65 18 136/66 (89) 93 BiPAP/CPAP 97.7 07/28/19 22:14 20 94 Nasal Cannula 1.0 07/28/19 20:14 71 138/68 07/28/19 20:00 Nasal Cannula 1.0 07/28/19 19:00 97.6 71 18 138/68 (91) 94 1.0 97.6 07/28/19 18:54 Room Air 07/28/19 18:23 Nasal Cannula 1.0 07/28/19 17:47 Nasal Cannula 2.0 07/28/19 17:13 55 159/69 07/28/19 15:39 Nasal Cannula 1.0 07/28/19 15:00 97.9 77 16 149/80 (103) 95 Nasal Cannula 1.0 97.9 07/28/19 13:19 Room Air 07/28/19 12:14 55 159/69 07/28/19 12:13 Nasal Cannula 1.0 07/28/19 11:53 93 Nasal Cannula 1.0 07/28/19 11:00 97.5 55 16 159/69 (99) 93 1.0 97.5 Current Medications Medications (Trade) Dose Ordered Sig/Ruth Route PRN Reason Start Time Stop Time Status Last Admin Dose Admin Morphine Sulfate (Morphine Sulfate) 4 mg PRN Q15MIN PRN IV/SQ PAIN GREATER THAN 3/10 07/26/19 17:45 07/27/19 17:44 DC 07/26/19 20:08 Iohexol (Omnipaque 300 Mg/ml) 75 ml 1X ONCE IV 07/26/19 19:15 07/26/19 19:17 DC 07/26/19 19:15 Info (CONTRAST GIVEN -- Rx MONITORING) 1 each PRN DAILY PRN MC SEE COMMENTS 07/26/19 19:30 07/28/19 19:29 DC Morphine Sulfate (Morphine Ir) 15 mg PRN Q4HRS PRN PO PAIN 07/27/19 06:15 07/29/19 05:13 Acetaminophen (Tylenol) 500 mg PRN Q6HRS PRN PO PAIN 07/27/19 10:30 07/27/19 11:12 DC Amlodipine Besylate (Norvasc) 10 mg DAILY PO 07/27/19 12:00 07/29/19 08:34 Apixaban (Eliquis) 5 mg BID PO 07/27/19 12:00 07/29/19 08:35 Divalproex Sodium (Depakote Er) 250 mg DAILY PO 07/27/19 12:00 07/29/19 08:35 Gabapentin (Neurontin) 300 mg QID PO 07/27/19 13:00 07/29/19 08:33 Hydralazine HCl (Apresoline) 50 mg QID PO 07/27/19 13:00 07/29/19 08:35 Acetaminophen/ Hydrocodone Bitart (Lortab 5/325) 1 tab PRN Q4HRS PRN PO PAIN 07/27/19 10:30 Hold Albuterol/ Ipratropium (Duoneb) 3 ml QID NEB 07/27/19 13:00 07/29/19 07:35 Lidocaine (Lidoderm) 1 patch DAILY TP 07/27/19 12:00 07/29/19 08:36 Montelukast Sodium (Singulair) 10 mg HS PO 07/27/19 21:00 07/28/19 20:13 Nicotine (Nicoderm Cq 21mg) 1 patch PRN DAILY PRN TD SMOKING CESSATION 07/27/19 12:00 Ondansetron HCl (Zofran Odt) 4 mg PRN Q6HRS PRN PO NAUSEA 07/27/19 10:30 Potassium Chloride (Klor-Con) 20 meq BID PO 07/27/19 21:00 07/29/19 08:33 Non-Formulary Medication (Albuterol Sulfate (Albuterol Sulfate Conc Neb Soln)) 1 vial PRN Q4HRS NEB 07/27/19 10:30 07/27/19 11:13 DC Vitamin D (Vitamin D3) 5,000 unit DAILY PO 07/27/19 12:00 07/29/19 08:35 Clonazepam (KlonoPIN) 1 mg PRN BID PRN PO ANXIETY / AGITATION 07/27/19 11:15 07/29/19 08:35 Artificial Tears (Artificial Tears) 1 drop PRN Q15MIN PRN OU DRY EYE 07/27/19 11:30 Guaifenesin (Robitussin Dm) 10 ml PRN Q6HRS PRN PO COUGH 07/27/19 11:15 Lactobacillus Rhamnosus (Culturelle) 1 cap BID PO 07/27/19 12:00 07/29/19 08:33 Pantoprazole Sodium (Protonix) 40 mg DAILYAC PO 07/27/19 12:00 07/29/19 08:34 Trihexyphenidyl HCl (Artane) 5 mg DAILY08 PO 07/27/19 12:00 07/29/19 08:33 Venlafaxine HCl (Effexor Xr) 75 mg DAILY PO 07/27/19 12:00 07/29/19 08:34 Piperacillin Sod/ Tazobactam Sod 3.375 gm/Sodium Chloride 50 ml @ 100 mls/hr Q6HRS IV 07/27/19 12:00 07/29/19 06:34 Sodium Chloride (Normal Saline Flush) 3 ml QSHIFT PRN IV AFTER MEDS AND BLOOD DRAWS 07/27/19 10:30 Ondansetron HCl (Zofran) 4 mg PRN Q4HRS PRN IV NAUSEA/VOMITING 07/27/19 10:30 Acetaminophen (Tylenol) 650 mg PRN Q4HRS PRN PO TEMP OVER 100.4F OR MILD PAIN 07/27/19 10:30 Clonidine HCl (Catapres) 0.1 mg PRN Q6HRS PRN PO SBP>160 OR DBP>90 07/27/19 10:30 Docusate Sodium (Colace) 100 mg PRN BID PRN PO CONSTIPATION 07/27/19 10:30 Albuterol/ Ipratropium (Duoneb) 3 ml Q4H NEB 07/27/19 10:30 07/27/19 16:29 DC 07/27/19 11:07 Guaifenesin (Robitussin) 200 mg PRN Q4HRS PRN PO COUGH 07/27/19 10:30 Prednisone (Prednisone) 40 mg DAILY PO 07/27/19 12:00 07/29/19 08:34 Albuterol Sulfate (Ventolin Neb Soln) 2.5 mg PRN Q4HRS PRN NEB SHORTNESS OF BREATH 07/27/19 11:15 Vital Signs Date Time Temp Pulse Resp B/P (MAP) Pulse Ox O2 Delivery O2 Flow Rate FiO2 07/29/19 05:13 20 94 Nasal Cannula 1.0 07/29/19 03:20 97.5 54 161/85 (110) 97.5 ROS: No Nausea, No Chest Pain, No Abdominal Pain, No Increase Cough General: Alert, Oriented X4, No acute distress Lungs: Clear Cardiovascular: S1 Abdomen: Soft, Non-tender Neuro Exam: Alert, Oriented Extremities: No Edema Skin: Warm Labs Laboratory Tests Test 07/27/19 11:00 07/28/19 03:58 07/28/19 08:00 O2 Saturation 97 % (92-99) 84 % (92-99) Arterial Blood pH 7.32 (7.35-7.45) 7.32 (7.35-7.45) Arterial Blood pCO2 at Patient Temp 77 mmHg (35-46) 66 mmHg (35-46) Arterial Blood pO2 at Patient Temp 102 mmHg (65-108) 50 mmHg (65-108) Arterial Blood HCO3 39 mmol/L (21-28) 33 mmol/L (21-28) Arterial Blood Base Excess 9 mmol/L (-3-3) 5 mmol/L (-3-3) Oxyhemoglobin 96.5 % Methemoglobin 0.3 % (0.0-1.9) Carbon Monoxide, Quantitative 0.3 % (0.0-1.9) FiO2 28 White Blood Count 8.8 x10^3/uL (4.0-11.0) Red Blood Count 4.20 x10^6/uL (4.30-5.70) Hemoglobin 13.0 g/dL (13.0-17.5) Hematocrit 38.7 % (39.0-53.0) Mean Corpuscular Volume 92 fL (79-100) Mean Corpuscular Hemoglobin 31 pg (25-35) Mean Corpuscular Hemoglobin Concent 34 g/dL (31-37) Red Cell Distribution Width 13.3 % (11.5-14.5) Platelet Count 225 x10^3/uL (140-400) Neutrophils (%) (Auto) 82 % (31-73) Lymphocytes (%) (Auto) 10 % (24-48) Monocytes (%) (Auto) 8 % (0-9) Eosinophils (%) (Auto) 0 % (0-3) Basophils (%) (Auto) 0 % (0-3) Neutrophils # (Auto) 7.3 x10^3/uL (1.8-7.7) Lymphocytes # (Auto) 0.9 x10^3/uL (1.0-4.8) Monocytes # (Auto) 0.7 x10^3/uL (0.0-1.1) Eosinophils # (Auto) 0.0 x10^3/uL (0.0-0.7) Basophils # (Auto) 0.0 x10^3/uL (0.0-0.2) Sodium Level 141 mmol/L (136-145) Potassium Level 4.1 mmol/L (3.5-5.1) Chloride Level 102 mmol/L (98-107) Carbon Dioxide Level 31 mmol/L (21-32) Anion Gap 8 (6-14) Blood Urea Nitrogen 15 mg/dL (8-26) Creatinine 0.7 mg/dL (0.7-1.3) Estimated GFR (Cockcroft-Gault) 115.0 Glucose Level 98 mg/dL (70-99) Calcium Level 9.4 mg/dL (8.5-10.1) Laboratory Tests Test 07/28/19 08:00 O2 Saturation 84 % (92-99) Arterial Blood pH 7.32 (7.35-7.45) Arterial Blood pCO2 at Patient Temp 66 mmHg (35-46) Arterial Blood pO2 at Patient Temp 50 mmHg (65-108) Arterial Blood HCO3 33 mmol/L (21-28) Arterial Blood Base Excess 5 mmol/L (-3-3) Medications Active Scripts Medications Dose Route/Sig Max Daily Dose Days Date Category Prednisone 20 Mg Tablet 40 Mg PO DAILY 3 08/13/18 Rx Doxycycline Hyclate 100 Mg Tablet 100 Mg PO BID 3 08/13/18 Rx Divalproex Sodium Er (Divalproex Sodium) 500 Mg Tab.er.24h 250 Mg PO DAILY 08/10/18 Reported Protonix (Pantoprazole Sodium) 20 Mg Tablet.dr 40 Mg PO DAILY 08/10/18 Reported Lidocaine PATCH (Lidocaine) 1 Each Adh..patch 1 Each TP DAILY 08/10/18 Reported Zofran Odt (Ondansetron) 4 Mg Tab.rapdis 1 Tab SL PRN Q6HRS PRN 02/10/18 Reported NICODERM CQ 21mg (Nicotine) 1 Each Patch.td24 1 Patch TP PRN DAILY 02/10/18 Reported Acetaminophen 500 Mg Tablet 1 Tab PO PRN Q6HRS PRN 02/10/18 Reported Montelukast Sodium Tablet (Montelukast Sodium) 10 Mg Tablet 10 Mg PO HS 02/10/18 Reported Robitussin Cough-Chest Dm Liq (Guaifenesin/Dextromethorphan) 237 Ml Liquid 237 Ml PO PRN QID PRN 01/22/18 Reported Acidophilus Lactobacilli (Lactobacillus Acidophilus) 1 Each Capsule 1 Each PO BID 01/22/18 Reported Duoneb 0.5-3(2.5) Mg/3 Ml (Albuterol/Ipratropium) 3 Ml Ampul.neb 3 Ml NEB QID 10/02/17 Reported Artificial Tears Eye Drops (Dextran 70/Hypromellose) 15 Ml Drops 1 Drop EACHEYE Q4HRS PRN 10/02/17 Reported Hydrocodone-Apap 5-325 (Hydrocodone Bit/Acetaminophen) 1 Each Tablet 1 Tab PO PRN Q4HRS PRN 10/02/17 Reported Albuterol Sulfate Conc Neb Soln (Albuterol Sulfate) 2.5 Mg/0.5 Ml Vial.neb 1 Vial NEB PRN Q4HRS 10/02/17 Reported Vitamin D3 (Cholecalciferol (Vitamin D3)) 5,000 Unit Tablet 1 Tab PO DAILY 10/02/17 Reported Trihexyphenidyl Hcl 5 Mg Tablet 1 Tab PO DAILY08 10/02/17 Reported Potassium Chloride (Potassium Chloride) 20 Meq Tablet.er 20 Meq PO BID 10/02/17 Reported Hydralazine Hcl 50 Mg Tablet 1 Tab PO QID 10/02/17 Reported Gabapentin (Gabapentin) 300 Mg Capsule 300 Mg PO QID 10/02/17 Reported Eliquis (Apixaban) 5 Mg Tablet 5 Mg PO BID 10/02/17 Reported Amlodipine Besylate 10 Mg Tablet 10 Mg PO DAILY 10/02/17 Reported Venlafaxine Hcl Er (Venlafaxine Hcl) 75 Mg Cap.er.24h 1 Cap PO DAILY 10/02/17 Reported Clonazepam 2 Mg Tablet 1 Tab PO PRN HS 10/02/17 Reported Clonazepam 1 Mg Tablet 1 Mg PO PRN BID 10/02/17 Reported Impression . 1. [id number] hypercapnic respiratory failure secondary to acute exacerbation of chronic obstructive pulmonary disease. Clinically, looks good. Arterial blood gas shows mild decompensation with hypercapnia. 2. Abnormal CT chest with evidence of bullous emphysema in the right upper lobe and also pleural thickening and scarring the right lower lobe. No definite consolidation seen. 3. No evidence of deep venous thrombosis or pulmonary embolism in prior CT angiogram since 2018. The patient documents no history of deep venous thrombosis. As reported in the H and P. 4. Chronic anticoagulation. Likely related to past history of arrhythmias. 5. Reported leg edema. Improved since hospitalization. No evidence of deep venous thrombosis. CT chest : Impression: Right posterior pleural thickening and basilar scarring are unchanged. No new mass is evident. No suspicious infiltrate or effusion. Plan . 1. ABG this am: compensated 2. Continue present bronchodilators. 3. change to PO abx. I do not see any evidence of respiratory tract infection--- remains on zosyn 4. Oral prednisone with taper. 5. Continue DuoNebs. 6. Eliquis per PCP. No pulmonary etiology for use of anticoagulation. 7. Discussed with JEN carter with KATHARINE Isabel MD Jul 29, 2019 07:11
[2019-07-29] MEDS: IPRATRPIUM/ALBUTEROL 0.5/2.5MG 3 ML NEBU. NEB SCH ×2 (07:35→12:03)
[2019-07-29] MEDS: TRIHEXYPHENIDYL 2 MG TABLET. PO SCH (08:33)
[2019-07-29] MEDS: GABAPENTIN 300 MG CAPSULE. PO SCH ×2 (08:33→15:04)
[2019-07-29] MEDS: LACTOBACILLUS RHAMNOSUS GG 1 CAPSULE. PO SCH (08:33)
[2019-07-29] MEDS: POTASSIUM CHLORIDE 20 MEQ TABLET.ER. PO SCH (08:33)
[2019-07-29] MEDS: VENLAFAXINE XR 37.5 MG CAP.ER.24H. PO SCH (08:34)
[2019-07-29] MEDS: amLODIPine BESYLATE 10 MG TABLET PO SCH (08:34)
[2019-07-29] MEDS: predniSONE 20 MG TABLET PO SCH (08:34)
[2019-07-29] MEDS: DIVALPROEX EXTENDED RELEASE 250 MG TAB.ER.24H. PO SCH (08:35)
[2019-07-29] MEDS: CHOLECALCIFEROL (VITAMIN D3) 5,000 UNIT CAPSULE PO SCH (08:35)
[2019-07-29] MEDS: APIXABAN 5 MG TABLET. PO SCH (08:35)
[2019-07-29] MEDS: clonazePAM 0.5 MG TABLET PO PRN (08:35)
[2019-07-29] MEDS: LIDOCAINE (700MG/PATCH) PATCH. TP SCH (08:36)
--- NOTE | 2019-07-29 09:26 | PDOC ---
PROGRESS NOTES Chief Complaint Chief Complaint Acute on chronic hypercapnic respiratory failure secondary to acute exacerbation of chronic obstructive pulmonary disease and contributed by narcotics and benzodiazepines. 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 ABG revealed a pH of 7.32, pCO2 of 77, pO2 102. This was obtained on 2 liters. Pulmonary Consultation requested CT Chest - Right posterior pleural thickening and basilar scarring are unchanged. No new mass is evident. No suspicious infiltrate or effusion. Significant emphysematous involvement along aguilar again noted. Bronchial wall thickening compatible with bronchitis. 07/28: He is feeling pretty weak today, having trouble getting up out of bed. No CP. Slight cough. SOB improved slightly. Overnight wore bipap for 4 hours, tolerated well. He feels well rested today. No CP, little SOB. ABG with pH 7.35, PCO2 65. Changed to PO doxy and prednisone. Vitals Vitals Vital Signs Date Time Temp Pulse Resp B/P (MAP) Pulse Ox O2 Delivery O2 Flow Rate FiO2 07/29/19 08:35 54 161/85 07/29/19 07:39 95 Nasal Cannula 1.0 07/29/19 07:00 97.5 16 97.5 Physical Exam General: Alert, Oriented X3, Cooperative, No acute distress Lungs: Clear Abdomen: Normal bowel sounds, Soft Extremities: No cyanosis, No edema Assessment and Plan Assessmemt and Plan Problems Medical Problems: (1) Acute bronchitis Status: Acute Comment Review of Relevant I have reviewed the following items zurdo (where applicable) has been applied. Labs Laboratory Tests Test 07/27/19 11:00 07/28/19 03:58 07/28/19 08:00 O2 Saturation 97 % (92-99) 84 % (92-99) Arterial Blood pH 7.32 (7.35-7.45) 7.32 (7.35-7.45) Arterial Blood pCO2 at Patient Temp 77 mmHg (35-46) 66 mmHg (35-46) Arterial Blood pO2 at Patient Temp 102 mmHg (65-108) 50 mmHg (65-108) Arterial Blood HCO3 39 mmol/L (21-28) 33 mmol/L (21-28) Arterial Blood Base Excess 9 mmol/L (-3-3) 5 mmol/L (-3-3) Oxyhemoglobin 96.5 % Methemoglobin 0.3 % (0.0-1.9) Carbon Monoxide, Quantitative 0.3 % (0.0-1.9) FiO2 28 White Blood Count 8.8 x10^3/uL (4.0-11.0) Red Blood Count 4.20 x10^6/uL (4.30-5.70) Hemoglobin 13.0 g/dL (13.0-17.5) Hematocrit 38.7 % (39.0-53.0) Mean Corpuscular Volume 92 fL (79-100) Mean Corpuscular Hemoglobin 31 pg (25-35) Mean Corpuscular Hemoglobin Concent 34 g/dL (31-37) Red Cell Distribution Width 13.3 % (11.5-14.5) Platelet Count 225 x10^3/uL (140-400) Neutrophils (%) (Auto) 82 % (31-73) Lymphocytes (%) (Auto) 10 % (24-48) Monocytes (%) (Auto) 8 % (0-9) Eosinophils (%) (Auto) 0 % (0-3) Basophils (%) (Auto) 0 % (0-3) Neutrophils # (Auto) 7.3 x10^3/uL (1.8-7.7) Lymphocytes # (Auto) 0.9 x10^3/uL (1.0-4.8) Monocytes # (Auto) 0.7 x10^3/uL (0.0-1.1) Eosinophils # (Auto) 0.0 x10^3/uL (0.0-0.7) Basophils # (Auto) 0.0 x10^3/uL (0.0-0.2) Sodium Level 141 mmol/L (136-145) Potassium Level 4.1 mmol/L (3.5-5.1) Chloride Level 102 mmol/L (98-107) Carbon Dioxide Level 31 mmol/L (21-32) Anion Gap 8 (6-14) Blood Urea Nitrogen 15 mg/dL (8-26) Creatinine 0.7 mg/dL (0.7-1.3) Estimated GFR (Cockcroft-Gault) 115.0 Glucose Level 98 mg/dL (70-99) Calcium Level 9.4 mg/dL (8.5-10.1) Medications Current Medications Morphine Sulfate (Morphine Sulfate) 4 mg PRN Q15MIN PRN IV/SQ PAIN GREATER THAN 3/10 Last administered on 07/26/19at 20:08; Start 07/26/19 at 17:45; Stop 07/27/19 at 17:44; Status DC Iohexol (Omnipaque 300 Mg/ml) 75 ml 1X ONCE IV Last administered on 07/26/19 19:15; Start 07/26/19 at 19:15; Stop 07/26/19 at 19:17; Status DC Info (CONTRAST GIVEN -- Rx MONITORING) 1 each PRN DAILY PRN MC SEE COMMENTS; Start 07/26/19 at 19:30; Stop 07/28/19 at 19:29; Status DC Morphine Sulfate (Morphine Ir) 15 mg PRN Q4HRS PRN PO PAIN Last administered on 07/29/19at 05:13; Start 07/27/19 at 06:15 Acetaminophen (Tylenol) 500 mg PRN Q6HRS PRN PO PAIN; Start 07/27/19 at 10:30; Stop 07/27/19 at 11:12; Status DC Amlodipine Besylate (Norvasc) 10 mg DAILY PO Last administered on 07/29/19at 08:34; Start 07/27/19 at 12:00 Apixaban (Eliquis) 5 mg BID PO Last administered on 07/29/19 08:35; Start 07/27/19 at 12:00 Divalproex Sodium (Depakote Er) 250 mg DAILY PO Last administered on 07/29/19 08:35; Start 07/27/19 at 12:00 Gabapentin (Neurontin) 300 mg QID PO Last administered on 07/29/19at 08:33; Start 07/27/19 at 13:00 Hydralazine HCl (Apresoline) 50 mg QID PO Last administered on 07/29/19at 08:35; Start 07/27/19 at 13:00 Acetaminophen/ Hydrocodone Bitart (Lortab 5/325) 1 tab PRN Q4HRS PRN PO PAIN; Start 07/27/19 at 10:30; Status Hold Albuterol/ Ipratropium (Duoneb) 3 ml QID NEB Last administered on 07/29/19 07:35; Start 07/27/19 at 13:00 Lidocaine (Lidoderm) 1 patch DAILY TP Last administered on 07/29/19at 08:36; Start 07/27/19 at 12:00 Montelukast Sodium (Singulair) 10 mg HS PO Last administered on 07/28/19at 20:13; Start 07/27/19 at 21:00 Nicotine (Nicoderm Cq 21mg) 1 patch PRN DAILY PRN TD SMOKING CESSATION; Start 07/27/19 at 12:00 Ondansetron HCl (Zofran Odt) 4 mg PRN Q6HRS PRN PO NAUSEA; Start 07/27/19 at 10:30 Potassium Chloride (Klor-Con) 20 meq BID PO Last administered on 07/29/19 08:33; Start 07/27/19 at 21:00 Non-Formulary Medication (Albuterol Sulfate (Albuterol Sulfate Conc Neb Soln)) 1 vial PRN Q4HRS NEB ; Start 07/27/19 at 10:30; Stop 07/27/19 at 11:13; Status DC Vitamin D (Vitamin D3) 5,000 unit DAILY PO Last administered on 07/29/19 08:35; Start 07/27/19 at 12:00 Clonazepam (KlonoPIN) 1 mg PRN BID PRN PO ANXIETY / AGITATION Last administered on 07/29/19at 08:35; Start 07/27/19 at 11:15 Artificial Tears (Artificial Tears) 1 drop PRN Q15MIN PRN OU DRY EYE; Start 07/27/19 at 11:30 Guaifenesin (Robitussin Dm) 10 ml PRN Q6HRS PRN PO COUGH; Start 07/27/19 at 11:15 Lactobacillus Rhamnosus (Culturelle) 1 cap BID PO Last administered on 07/29/19 08:33; Start 07/27/19 at 12:00 Pantoprazole Sodium (Protonix) 40 mg DAILYAC PO Last administered on 07/29/19at 08:34; Start 07/27/19 at 12:00 Trihexyphenidyl HCl (Artane) 5 mg DAILY08 PO Last administered on 07/29/19at 08:33; Start 07/27/19 at 12:00 Venlafaxine HCl (Effexor Xr) 75 mg DAILY PO Last administered on 07/29/19at 08:34; Start 07/27/19 at 12:00 Piperacillin Sod/ Tazobactam Sod 3.375 gm/Sodium Chloride 50 ml @ 100 mls/hr Q6HRS IV Last administered on 07/29/19 06:34; Start 07/27/19 at 12:00 Sodium Chloride (Normal Saline Flush) 3 ml QSHIFT PRN IV AFTER MEDS AND BLOOD DRAWS; Start 07/27/19 at 10:30 Ondansetron HCl (Zofran) 4 mg PRN Q4HRS PRN IV NAUSEA/VOMITING; Start 07/27/19 at 10:30 Acetaminophen (Tylenol) 650 mg PRN Q4HRS PRN PO TEMP OVER 100.4F OR MILD PAIN; Start 07/27/19 at 10:30 Clonidine HCl (Catapres) 0.1 mg PRN Q6HRS PRN PO SBP>160 OR DBP>90; Start 07/27/19 at 10:30 Docusate Sodium (Colace) 100 mg PRN BID PRN PO CONSTIPATION; Start 07/27/19 at 10:30 Albuterol/ Ipratropium (Duoneb) 3 ml Q4H NEB Last administered on 07/27/19at 11:07; Start 07/27/19 at 10:30; Stop 07/27/19 at 16:29; Status DC Guaifenesin (Robitussin) 200 mg PRN Q4HRS PRN PO COUGH; Start 07/27/19 at 10:30 Prednisone (Prednisone) 40 mg DAILY PO Last administered on 07/29/19at 08:34; Start 07/27/19 at 12:00 Albuterol Sulfate (Ventolin Neb Soln) 2.5 mg PRN Q4HRS PRN NEB SHORTNESS OF BREATH; Start 07/27/19 at 11:15 Active Scripts Active Prednisone 20 Mg Tablet 40 Mg PO DAILY 3 Days Doxycycline Hyclate 100 Mg Tablet 100 Mg PO BID 3 Days Reported Divalproex Sodium Er (Divalproex Sodium) 500 Mg Tab.er.24h 250 Mg PO DAILY Protonix (Pantoprazole Sodium) 20 Mg Tablet.dr 40 Mg PO DAILY Lidocaine PATCH (Lidocaine) 1 Each Adh..patch 1 Each TP DAILY Zofran Odt (Ondansetron) 4 Mg Tab.rapdis 1 Tab SL PRN Q6HRS PRN NICODERM CQ 21mg (Nicotine) 1 Each Patch.td24 1 Patch TP PRN DAILY Acetaminophen 500 Mg Tablet 1 Tab PO PRN Q6HRS PRN Montelukast Sodium Tablet (Montelukast Sodium) 10 Mg Tablet 10 Mg PO HS Robitussin Cough-Chest Dm Liq (Guaifenesin/Dextromethorphan) 237 Ml Liquid 237 Ml PO PRN QID PRN Acidophilus Lactobacilli (Lactobacillus Acidophilus) 1 Each Capsule 1 Each PO BID Duoneb 0.5-3(2.5) Mg/3 Ml (Albuterol/Ipratropium) 3 Ml Ampul.neb 3 Ml NEB QID Artificial Tears Eye Drops (Dextran 70/Hypromellose) 15 Ml Drops 1 Drop EACHEYE Q4HRS PRN Hydrocodone-Apap 5-325 (Hydrocodone Bit/Acetaminophen) 1 Each Tablet 1 Tab PO PRN Q4HRS PRN Albuterol Sulfate Conc Neb Soln (Albuterol Sulfate) 2.5 Mg/0.5 Ml Vial.neb 1 Vial NEB PRN Q4HRS Vitamin D3 (Cholecalciferol (Vitamin D3)) 5,000 Unit Tablet 1 Tab PO DAILY Trihexyphenidyl Hcl 5 Mg Tablet 1 Tab PO DAILY08 Potassium Chloride (Potassium Chloride) 20 Meq Tablet.er 20 Meq PO BID Hydralazine Hcl 50 Mg Tablet 1 Tab PO QID Gabapentin (Gabapentin) 300 Mg Capsule 300 Mg PO QID Eliquis (Apixaban) 5 Mg Tablet 5 Mg PO BID Amlodipine Besylate 10 Mg Tablet 10 Mg PO DAILY Venlafaxine Hcl Er (Venlafaxine Hcl) 75 Mg Cap.er.24h 1 Cap PO DAILY Clonazepam 2 Mg Tablet 1 Tab PO PRN HS Clonazepam 1 Mg Tablet 1 Mg PO PRN BID Vitals/I & O Vital Sign - Last 24 Hours 1207/28/19 07/28/19 07/28/19 11:00 11:53 12:13 12:14 Temp 97.5 97.5 Pulse 55 55 Resp 16 B/P (MAP) 159/69 (99) 159/69 Pulse Ox 93 93 O2 Delivery Nasal Cannula Nasal Cannula O2 Flow Rate 1.0 1.0 1.0 07/28/19 07/28/19 07/28/19 07/28/19 13:19 15:00 15:39 17:13 Temp 97.9 97.9 Pulse 77 55 Resp 16 B/P (MAP) 149/80 (103) 159/69 Pulse Ox 95 O2 Delivery Room Air Nasal Cannula Nasal Cannula O2 Flow Rate 1.0 1.0 07/28/19 07/28/19 07/28/19 07/28/19 17:47 18:23 18:54 19:00 Temp 97.6 97.6 Pulse 71 Resp 18 B/P (MAP) 138/68 (91) Pulse Ox 94 O2 Delivery Nasal Cannula Nasal Cannula Room Air O2 Flow Rate 2.0 1.0 1.0 07/28/19 07/28/19 07/28/19 07/28/19 20:00 20:14 22:14 23:00 Temp 97.7 97.7 Pulse 71 65 Resp 20 18 B/P (MAP) 138/68 136/66 (89) Pulse Ox 94 93 O2 Delivery Nasal Cannula Nasal Cannula BiPAP/CPAP O2 Flow Rate 1.0 1.0 07/28/19 07/28/19 07/29/19 07/29/19 23:02 23:14 01:00 03:20 Temp 97.5 97.5 Pulse 54 Resp 18 16 B/P (MAP) 161/85 (110) Pulse Ox 94 92 O2 Delivery BiPAP/CPAP Nasal Cannula BiPAP/CPAP BiPAP/CPAP O2 Flow Rate 1.0 07/29/19 07/29/19 07/29/19 07/29/19 03:55 05:13 06:13 07:00 Temp 97.5 97.5 Pulse 58 Resp 20 20 16 B/P (MAP) 152/62 (92) Pulse Ox 94 94 94 91 O2 Delivery BiPAP/CPAP Nasal Cannula Nasal Cannula BiPAP/CPAP O2 Flow Rate 1.0 1.0 07/29/19 07/29/19 07/29/19 07:39 08:34 08:35 Pulse 54 54 B/P (MAP) 161/85 161/85 Pulse Ox 95 O2 Delivery Nasal Cannula O2 Flow Rate 1.0 Intake and Output 07/28/19 07/28/19 07/29/19 15:00 23:00 07:00 Intake Total 260 ml 390 ml Output Total 250 ml 500 ml 450 ml Balance -250 ml -240 ml -60 ml SAHRA PALUMBO MD Jul 29, 2019 09:26
[2019-07-29 09:29] LABS: BASE EXCESS ABG 8 mmol/L (-3-3); HCO3 ABG 36 mmol/L (21-28); PO2 ABG 81 mmHg (65-108); SAT O2 ABG 95 % (92-99)
[2019-07-29 09:34] LABS: PCO2 ABG 65 mmHg (35-46)
[2019-07-29 09:35] LABS: FIO2 ABG 1L N.C.
[2019-07-29 11:00] VITALS: BP 142/77
[2019-07-29] MEDS ORDERED: CLONAZEPAM1 MG PO (13:07)
[2019-07-29] MEDS ORDERED: DOXY100T PO (13:07)
[2019-07-29] MEDS ORDERED: PRED20TA PO (13:07)
[2019-07-29] MEDS ORDERED: HYDR-2761 PO (13:07)
--- NOTE | 2019-07-29 13:08 | SNU/HH DC ---
DISCHARGE ORDERS DISCHARGE INFORMATION: DISCHARGE DATE: Jul 29, 2019 FINAL DIAGNOSIS Problems Medical Problems: (1) Acute bronchitis Status: Acute CONDITION ON DISCHARGE: Stable CODE STATUS: Code Status: Full POST DISCHARGE ORDERS: ACTIVITY ORDERS: Activity as tolerated WEIGHT BEARING STATUS: As tolerated DIET AFTER DISCHARGE: Cardiac CHECKS AFTER DISCHARGE: CHECKS AFTER DISCHARGE: Check blood press - daily, Check your Temp as needed TREATMENT/EQUIPMENT ORDERS: RESPIRATORY EQUIPMENT NEEDED: Oxygen, CPAP DISCHARGE MEDICATIONS: Home Meds Active Scripts Prednisone (PREDNISONE) 20 Mg Tablet, 20 MG PO DAILY for acute bronchitis for 5 Days, #5 TAB Prov:SAHRA PALUMBO MD 07/29/19 Doxycycline Hyclate (DOXYCYCLINE HYCLATE) 100 Mg Tablet, 100 MG PO BID for Bronchitis for 5 Days, #10 TAB Prov:SAHRA PALUMBO MD 07/29/19 Hydrocodone Bit/Acetaminophen (HYDROCODONE-APAP 5-325 ) 1 Each Tablet, 1 TAB PO PRN Q4HRS PRN for PAIN for 6 Days, #16 TAB 0 Refills Prov:SAHRA PALUMBO MD 07/29/19 Clonazepam (CLONAZEPAM) 1 Mg Tablet, 1 MG PO PRN BID for Anxiety for 6 Days, #12 TAB Prov:SAHRA PALUMBO MD 07/29/19 Reported Medications Divalproex Sodium (DIVALPROEX SODIUM ER) 500 Mg Tab.er.24h, 250 MG PO DAILY for mood stabilizer, TAB.SR 08/10/18 Pantoprazole Sodium (PROTONIX) 20 Mg Tablet.dr, 40 MG PO DAILY for acid reflux, TAB 08/10/18 Lidocaine (Lidocaine PATCH ) 1 Each Adh..patch, 1 EACH TP DAILY for chronic pain, PATCH 08/10/18 Ondansetron (ZOFRAN ODT) 4 Mg Tab.rapdis, 1 TAB SL PRN Q6HRS PRN for NAUSEA, #15 TAB 02/10/18 Nicotine (NICODERM CQ 21mg) 1 Each Patch.td24, 1 PATCH TP PRN DAILY, #28 PATCH 1 Refill 02/10/18 Acetaminophen (ACETAMINOPHEN) 500 Mg Tablet, 1 TAB PO PRN Q6HRS PRN for PAIN, #60 TAB 02/10/18 Montelukast Sodium (MONTELUKAST SODIUM TABLET ) 10 Mg Tablet, 10 MG PO HS, #30 TAB 0 Refills 02/10/18 Guaifenesin/Dextromethorphan (Robitussin Cough-Chest Dm Liq) 237 Ml Liquid, 237 ML PO PRN QID PRN for COUGH, LIQUID 01/22/18 Lactobacillus Acidophilus (Acidophilus Lactobacilli) 1 Each Capsule, 1 EACH PO BID, CAP 01/22/18 Ipratropium/Albuterol Sulfate (DUONEB 0.5-3(2.5) MG/3 ML) 3 Ml Ampul.neb, 3 ML NEB QID 10/02/17 Dextran 70/Hypromellose (ARTIFICIAL TEARS EYE DROPS) 15 Ml Drops, 1 DROP EACHEYE Q4HRS PRN for DRY EYE, #15 ML 5 Refills 10/02/17 Albuterol Sulfate (ALBUTEROL SULFATE CONC NEB SOLN) 2.5 Mg/0.5 Ml Vial.neb, 1 VIAL NEB PRN Q4HRS, #120 VIAL 5 Refills 10/02/17 Cholecalciferol (Vitamin D3) (VITAMIN D3) 5,000 Unit Tablet, 1 TAB PO DAILY, #30 TAB 10/02/17 Trihexyphenidyl Hcl (TRIHEXYPHENIDYL HCL) 5 Mg Tablet, 1 TAB PO DAILY08, #60 TAB 1 Refill 10/02/17 Potassium Chloride (POTASSIUM CHLORIDE ) 20 Meq Tablet.er, 20 MEQ PO BID, TAB.SR 10/02/17 Hydralazine Hcl (HYDRALAZINE HCL) 50 Mg Tablet, 1 TAB PO QID, #90 TAB 5 Refills 10/02/17 Gabapentin (GABAPENTIN ) 300 Mg Capsule, 300 MG PO QID, CAP 10/02/17 Apixaban (ELIQUIS) 5 Mg Tablet, 5 MG PO BID, TAB 10/02/17 Amlodipine Besylate (AMLODIPINE BESYLATE) 10 Mg Tablet, 10 MG PO DAILY, TAB 10/02/17 Venlafaxine Hcl (VENLAFAXINE HCL ER) 75 Mg Cap.er.24h, 1 CAP PO DAILY, #90 CAP 3 Refills 10/02/17 Discontinued Reported Medications Clonazepam (CLONAZEPAM) 2 Mg Tablet, 1 TAB PO PRN HS, #60 TAB 2 Refills 10/02/17 SAHRA PALUMBO MD Jul 29, 2019 13:08
--- NOTE | 2019-07-29 14:03 | PDOC3 ---
Discharge Summary Visit Information Date of Admission: Jul 26, 2019 Date of Discharge: Jul 29, 2019 Admitting Diagnosis: Acute hypercapnic respiratory failure Final Diagnosis Problems Medical Problems: (1) Acute bronchitis Status: Acute Brief Hospital Course Allergies Allergies Coded Allergies Type Severity Reaction Last Updated Verified I S O L A T I O N *CONTACT* Allergy Unknown 01/28/18 Yes No Known Medication Allergies Allergy Unknown 01/28/18 Yes Vital Signs Vital Signs Date Time Temp Pulse Resp B/P (MAP) Pulse Ox O2 Delivery O2 Flow Rate FiO2 07/29/19 12:04 Nasal Cannula 1.0 07/29/19 11:00 97.6 55 14 142/77 (98) 94 97.6 Lab Results Laboratory Tests Test 07/28/19 03:58 07/28/19 08:00 07/29/19 09:30 White Blood Count 8.8 x10^3/uL (4.0-11.0) Red Blood Count 4.20 x10^6/uL (4.30-5.70) Hemoglobin 13.0 g/dL (13.0-17.5) Hematocrit 38.7 % (39.0-53.0) Mean Corpuscular Volume 92 fL (79-100) Mean Corpuscular Hemoglobin 31 pg (25-35) Mean Corpuscular Hemoglobin Concent 34 g/dL (31-37) Red Cell Distribution Width 13.3 % (11.5-14.5) Platelet Count 225 x10^3/uL (140-400) Neutrophils (%) (Auto) 82 % (31-73) Lymphocytes (%) (Auto) 10 % (24-48) Monocytes (%) (Auto) 8 % (0-9) Eosinophils (%) (Auto) 0 % (0-3) Basophils (%) (Auto) 0 % (0-3) Neutrophils # (Auto) 7.3 x10^3/uL (1.8-7.7) Lymphocytes # (Auto) 0.9 x10^3/uL (1.0-4.8) Monocytes # (Auto) 0.7 x10^3/uL (0.0-1.1) Eosinophils # (Auto) 0.0 x10^3/uL (0.0-0.7) Basophils # (Auto) 0.0 x10^3/uL (0.0-0.2) Sodium Level 141 mmol/L (136-145) Potassium Level 4.1 mmol/L (3.5-5.1) Chloride Level 102 mmol/L (98-107) Carbon Dioxide Level 31 mmol/L (21-32) Anion Gap 8 (6-14) Blood Urea Nitrogen 15 mg/dL (8-26) Creatinine 0.7 mg/dL (0.7-1.3) Estimated GFR (Cockcroft-Gault) 115.0 Glucose Level 98 mg/dL (70-99) Calcium Level 9.4 mg/dL (8.5-10.1) O2 Saturation 84 % (92-99) 95 % (92-99) Arterial Blood pH 7.32 (7.35-7.45) 7.35 (7.35-7.45) Arterial Blood pCO2 at Patient Temp 66 mmHg (35-46) 65 mmHg (35-46) Arterial Blood pO2 at Patient Temp 50 mmHg (65-108) 81 mmHg (65-108) Arterial Blood HCO3 33 mmol/L (21-28) 36 mmol/L (21-28) Arterial Blood Base Excess 5 mmol/L (-3-3) 8 mmol/L (-3-3) FiO2 1l n.c. Laboratory Tests Test 07/29/19 09:30 O2 Saturation 95 % (92-99) Arterial Blood pH 7.35 (7.35-7.45) Arterial Blood pCO2 at Patient Temp 65 mmHg (35-46) Arterial Blood pO2 at Patient Temp 81 mmHg (65-108) Arterial Blood HCO3 36 mmol/L (21-28) Arterial Blood Base Excess 8 mmol/L (-3-3) FiO2 1l n.c. 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 ABG revealed a pH of 7.32, pCO2 of 77, pO2 102. This was obtained on 2 liters. Pulmonary Consultation requested CT Chest - Right posterior pleural thickening and basilar scarring are unchanged. No new mass is evident. No suspicious infiltrate or effusion. Significant emphysematous involvement along aguilar again noted. Bronchial wall thickening compatible with bronchitis. 07/28: He is feeling pretty weak today, having trouble getting up out of bed. No CP. Slight cough. SOB improved slightly. Overnight wore bipap for 4 hours, tolerated well. He feels well rested today. No CP, little SOB. ABG with pH 7.35, PCO2 65. Changed to PO doxy and prednisone. Problem list: Acute on chronic hypercapnic respiratory failure secondary to acute exacerbation of chronic obstructive pulmonary disease and contributed by narcotics and benzodiazepines. Elevated d-dimer with no evidence of pulmonary embolism on CTA of the chest History of narcotic dependence History of deep venous thrombosis on chronic anticoagulation History of chronic narcotic use secondary to Chronic pain syndrome H/O TBI, [facility] resident Tobacco use Severe COPD (previously on 3L NCO2 continuously) Anxiety Bipolar disorder HTN WANDER on CPAP Cervical dystonia Greater than 30 minutes spent on d/c Discharge Information Condition at Discharge: Improved Follow Up: Weeks Disposition/Orders: D/C to Another Facility Scheduled Albuterol Sulfate (Albuterol Sulfate Conc Neb Soln) 2.5 Mg/0.5 Ml Vial.neb, 1 VIAL NEB PRN Q4HRS, #120 Ref 5 (Reported) Entered as Reported by: JANNETH VALENCIA on 10/02/1748 Last Action: Converted on 07/27/191017 by ENMANUEL NIXON MD Amlodipine Besylate (Amlodipine Besylate) 10 Mg Tablet, 10 MG PO DAILY, (Reported) Entered as Reported by: JANNETH VALENCIA on 10/02/1748 Last Action: Continued on 07/27/19 101 by ENMANUEL NIXON MD Apixaban (Eliquis) 5 Mg Tablet, 5 MG PO BID, (Reported) Entered as Reported by: JANNETH VALENCIA on 10/02/1748 Last Action: Continued on 07/27/191017 by ENMANUEL NIXON MD Cholecalciferol (Vitamin D3) (Vitamin D3) 5,000 Unit Tablet, 1 TAB PO DAILY, #30 (Reported) Entered as Reported by: JANNETH VALENCIA on 10/02/1748 Last Action: Converted on 07/27/191017 by ENMANUEL NIXON MD Clonazepam (Clonazepam) 1 Mg Tablet, 1 MG PO PRN BID for Anxiety for 6 Days, #12 Prescribed by: SAHRA PALUMBO MD on 07/29/19 1307 Divalproex Sodium (Divalproex Sodium Er) 500 Mg Tab.er.24h, 250 MG PO DAILY for mood stabilizer, (Reported) Entered as Reported by: ENMANUEL AMADO on 08/10/18340 Last Action: Continued on 07/27/191017 by ENMANUEL NIXON MD Doxycycline Hyclate (Doxycycline Hyclate) 100 Mg Tablet, 100 MG PO BID for Bronchitis for 5 Days, #10 Prescribed by: SAHRA PALUMBO MD on 07/29/19 1307 Gabapentin (Gabapentin ) 300 Mg Capsule, 300 MG PO QID, (Reported) Entered as Reported by: JANNETH VALENCIA on 10/02/1748 Last Action: Continued on 07/27/191017 by ENMANUEL NIXON MD Hydralazine Hcl (Hydralazine Hcl) 50 Mg Tablet, 1 TAB PO QID, #90 Ref 5 (Reported) Entered as Reported by: JANNETH VALENCIA on 10/02/1748 Last Action: Continued on 07/27/191017 by ENMANUEL NIXON MD Ipratropium/Albuterol Sulfate (Duoneb 0.5-3(2.5) Mg/3 Ml) 3 Ml Ampul.neb, 3 ML NEB QID, (Reported) Entered as Reported by: JANNETH VALENCIA on 10/02/1748 Last Action: Continued on 07/27/191017 by ENMANUEL NIXON MD Lactobacillus Acidophilus (Acidophilus Lactobacilli) 1 Each Capsule, 1 EACH PO BID, (Reported) Entered as Reported by: TRACEY SULLIVAN on 01/22/18 0002 Last Action: Converted on 07/27/191017 by ENMNAUEL NIXON MD Lidocaine (Lidocaine PATCH ) 1 Each Adh..patch, 1 EACH TP DAILY for chronic pain, (Reported) Entered as Reported by: ENMANUEL AMADO on 08/10/18340 Last Action: Continued on 07/27/191017 by ENMANUEL NIXON MD Montelukast Sodium (Montelukast Sodium Tablet ) 10 Mg Tablet, 10 MG PO HS, #30 Ref 0 (Reported) Entered as Reported by: LEVI SALAZAR on 02/10/18 0134 Last Action: Continued on 07/27/191017 by ENMANUEL NIXON MD Nicotine (NICODERM CQ 21mg) 1 Each Patch.td24, 1 PATCH TP PRN DAILY, #28 Ref 1 (Reported) Entered as Reported by: LEVI SALAZAR on 02/10/18133 Last Action: Continued on 07/27/191017 by ENMANUEL NIXON MD Pantoprazole Sodium (Protonix) 20 Mg Tablet.dr, 40 MG PO DAILY for acid reflux, (Reported) Entered as Reported by: ENMANUEL AMADO on 08/10/18340 Last Action: Converted on 07/27/191017 by ENMANUEL NIXON MD Potassium Chloride (Potassium Chloride ) 20 Meq Tablet.er, 20 MEQ PO BID, (Reported) Entered as Reported by: JANNETH VALENCIA on 10/02/1748 Last Action: Continued on 07/27/191017 by ENMANEUL NIXON MD Prednisone (Prednisone) 20 Mg Tablet, 20 MG PO DAILY for acute bronchitis for 5 Days, #5 Prescribed by: SAHRA PALUMBO MD on 07/29/19 1307 Trihexyphenidyl Hcl (Trihexyphenidyl Hcl) 5 Mg Tablet, 1 TAB PO DAILY08, #60 Ref 1 (Reported) Entered as Reported by: JANNETH VALENCIA on 10/02/1748 Last Action: Converted on 07/27/191017 by ENMANUEL NIXON MD Venlafaxine Hcl (Venlafaxine Hcl Er) 75 Mg Cap.er.24h, 1 CAP PO DAILY, #90 Ref 3 (Reported) Entered as Reported by: JANNETH VALENCIA on 10/02/1748 Last Action: Converted on 07/27/191017 by ENMANUEL NIXON MD Scheduled PRN Acetaminophen (Acetaminophen) 500 Mg Tablet, 1 TAB PO PRN Q6HRS PRN for PAIN, #60 (Reported) Entered as Reported by: LEVI SALAZAR on 02/10/18133 Last Action: Continued on 07/27/191017 by ENMANUEL NIXON MD Dextran 70/Hypromellose (Artificial Tears Eye Drops) 15 Ml Drops, 1 DROP EACHEYE Q4HRS PRN for DRY EYE, #15 Ref 5 (Reported) Entered as Reported by: JANNETH VALENCIA on 3/2/18 0049 Last Action: Converted on 07/27/19 101 by ENMANUEL NIXON MD Guaifenesin/Dextromethorphan (Robitussin Cough-Chest Dm Liq) 237 Ml Liquid, 237 ML PO PRN QID PRN for COUGH, (Reported) Entered as Reported by: TRACEY SULLIVAN on 01/22/18 0002 Last Action: Converted on 07/27/191017 by ENMANUEL NIXON MD Hydrocodone Bit/Acetaminophen (Hydrocodone-Apap 5-325 ) 1 Each Tablet, 1 TAB PO PRN Q4HRS PRN for PAIN for 6 Days, #16 Ref 0 Prescribed by: SAHRA PALUMBO MD on 07/29/19 1307 Ondansetron (Zofran Odt) 4 Mg Tab.rapdis, 1 TAB SL PRN Q6HRS PRN for NAUSEA, #15 (Reported) Entered as Reported by: LEVI SALAZAR on 02/10/18 0134 Last Action: Continued on 07/27/191017 by ENMANUEL NIXON MD Discontinued Medications Clonazepam (Clonazepam) 2 Mg Tablet, 1 TAB PO PRN HS, #60 Ref 2 (Reported) Entered as Reported by: JANNETH VALENCIA on 10/02/17 0049 Last Action: HELD on 07/27/191017 by MD LINWOOD COCHRAN CHRISTOPHER S MD Jul 29, 2019 14:03
--- NOTE | 2019-07-29 15:00 | NUR ---
SW following pt. Orders faxed to [facility] and facility on the way to [facility] [place] supervisor pt. RN notified.
[2019-07-29 15:04] VITALS: BP 142/77
--- NOTE | 2019-07-29 15:48 | NUR ---
pt transferred back to [facility] via external transportation. IV removed, cath intact. pt left with glasses and personal O2 tank. report given to Jodee @ [facility]. labs, vitals, and meds reviewed.
--- NOTE | 2019-07-29 16:01 | CARD ---
MR#: [id number] Date of Study: 07/29/2019 Ordering Physician: ENMANUEL NIXON, Referring Physician: ENMANUEL NIXON, Tech: Katelynn Peck APPROVED REPORT EXAM: Two-dimensional and M-mode echocardiogram with Doppler and color Doppler. Other Information Quality : AverageHR: 66bpm Technically limited study due to body habitus. INDICATION COPD Congestive Heart Failure 2D DIMENSIONS RVDd3.1 (2.9-3.5cm)Left Atrium(2D)3.2 (1.6-4.0cm) IVSd1.2 (0.7-1.1cm)Aortic Root(2D)3.4 (2.0-3.7cm) LVDd5.4 (3.9-5.9cm)LVOT Diameter2.1 (1.8-2.4cm) PWd1.0 (0.7-1.1cm)LVDs3.0 (2.5-4.0cm) FS (%) 43.8 %SV103.8 ml LVEF(%)74.5 (>50%) Aortic Valve AoV Peak Gurjit.184.5cm/sAoV VTI38.8cm AO Peak GR.13.6mmHgLVOT VTI 25.30cm AO Mean GR.7mmHg Mitral Valve MV E Xsvxgwsk630.7cm/sMV DECEL [id number] MV A Yjoglwug694.3cm/sE/A Ratio0.8 TDI Lateral E' P. V9.71cm/sMedial E' P. V6.69cm/s E/Lateral E'10.7E/Medial E'15.5 Tricuspid Valve TR P. Isxfmkun345xq/sRAP [id number] TR Peak Gr.27jhPmJALE39daOh Pulmonary Vein S1 Vdpafack20.9cm/sS2 Grxnpwiv66.97cm/s D2 Fyxyfila33.0cm/sPVa [id number] LEFT VENTRICLE The left ventricle is normal size. There is mild to moderate concentric left ventricular hypertrophy. The left ventricular systolic function is normal and the ejection fraction is within normal range. T he Ejection Fraction is 60-65%. There is normal LV segmental wall motion. Transmitral Doppler flow pa ttern is Grade I-abnormal relaxation pattern. RIGHT VENTRICLE The right ventricle is borderline dilated. There is normal right ventricular wall thickness. The righ t ventricular systolic function is normal. ATRIA The left atrium size is normal. The right atrium size is normal. The interatrial septum is intact wit h no evidence for an atrial septal defect or patent foramen ovale as noted on 2-D or Doppler imaging. AORTIC VALVE The aortic valve is not well visualized. Doppler and Color Flow revealed no significant aortic regurg itation. There is no significant aortic valvular stenosis. MITRAL VALVE The mitral valve is normal in structure and function. There is no evidence of mitral valve prolapse. There is no mitral valve stenosis. Doppler and Color-flow revealed trace mitral regurgitation. TRICUSPID VALVE Not well visualized. Doppler and Color Flow revealed trace tricuspid regurgitation with an estimated PAP 27 mmHg. There is no tricuspid valve stenosis. PULMONIC VALVE The pulmonic valve is not well visualized. Doppler and Color Flow revealed no pulmonic valvular regur gitation. There is no pulmonic valvular stenosis. GREAT VESSELS The aortic root is normal in size. The IVC is normal in size and collapses >50% with inspiration. PERICARDIAL EFFUSION There is no evidence of significant pericardial effusion. Critical Notification Critical Value: No <Conclusion> The left ventricular systolic function is normal and the ejection fraction is within normal range. Th e Ejection Fraction is 60-65%. There is normal LV segmental wall motion. Signed by : Davide Presley, Electronically Approved : 07/29/2019 16:01:32
== END 2019-07-29 15:50 | disposition home or self-care (01) | DRG 189 ==
LOC: ER 17:14 → 5 SOUTH 19:20
PROVIDERS: ADMIT Family Medicine; ATTEND Family Medicine
PROC: 5A09357 Assistance with Respiratory Ventilation, Less than 24 Consecutive Hours, Continuous Positive Airway Pressure (ICD-10-PCS; 2019-07-28)
PROC: 5A09357 Assistance with Respiratory Ventilation, Less than 24 Consecutive Hours, Continuous Positive Airway Pressure (ICD-10-PCS; principal; 2019-07-29)
DX: J96.22 Acute and chronic respiratory failure with hypercapnia (principal); J44.1 Chronic obstructive pulmonary disease with (acute) exacerbation; J44.0 Chronic obstructive pulmonary disease with (acute) lower respiratory infection; J20.9 Acute bronchitis, unspecified; J96.21 Acute and chronic respiratory failure with hypoxia; F31.9 Bipolar disorder, unspecified; F41.9 Anxiety disorder, unspecified; G24.9 Dystonia, unspecified; G47.33 Obstructive sleep apnea (adult) (pediatric); G89.4 Chronic pain syndrome; I11.0 Hypertensive heart disease with heart failure; I50.9 Heart failure, unspecified; Z79.01 Long term (current) use of anticoagulants; Z79.891 Long term (current) use of opiate analgesic; Z82.49 Family history of ischemic heart disease and other diseases of the circulatory system; Z82.5 Family history of asthma and other chronic lower respiratory diseases; Z86.718 Personal history of other venous thrombosis and embolism; Z87.820 Personal history of traumatic brain injury; Z87.891 Personal history of nicotine dependence
CPT/HCPCS: 36415; 36600; 71045; 71260; 80048; 80053; 81001; 82553; 82805; 83735; 83880; 84484; 85025; 85610; 87641; 93005; 93306; 93970; 94640; 94660; 94760; 96374; J2270; J2543; J7512; J7620; Q9967; 99285-25; G0378